=== PATIENT | female | born 1930 | race Caucasian/White ===

== ENCOUNTER 2016-08-31 18:21 | Inpatient (IN) | payer MEDICARE ==
[~2016-08-31 18:21] MED LIST: ALLO100 PO; CEPH250T PO; FERR324T4 PO; FISH1000 PO; HYDR-2823 PO; HYDR-3133 PO; KLOR8TAB PO; KONS520C PO; LORTA5 PO; LOVA1TAB47 PO; MAXZ PO; OCUVTAB PO; OXYB5TAB33 PO; PREM0.622 PO; REST30CA PO; TYLE500T PO; osteo biflex
[2016-08-31 18:34] VITALS: BP 166/81; PULSE 94; RESP 20; TEMP 99.1
--- NOTE | 2016-08-31 18:51 | PD ---
HPI Chief Complaint: Fall Time Seen by Provider: 18:50 Travel History International Travel<30 days: No Contact w/Intl Traveler<30days: No Traveled to known affect area: No History of Present Illness HPI 85-year-old female presents the emergency department via EMS status post fall from her toilet at home 2 days prior to this visit. Patient was unable to get up and spent the last 2 days on the floor patient was visited by her grandson this afternoon and found her and called the ambulance. Patient states she lost balance and fell, and then was unable to get up. She does complain of some left hip discomfort, but denies numbness, tingling, or weakness. Does have ecchymosis around the left eye although she does not complain of headache, neck pain, or visual changes. The patient's Main complaint is of extreme thirst. Patient denies thoracic pain or shortness of breath. Patient denies abdominal pain. She is alert and oriented 3. She is allergic to aspirin. PFSH Past Medical History Anemia: Yes Arthritis: Yes Blood Disorders: No Anxiety: Yes Depression: Yes Cancer: Yes (RIGHT LOWER EYELID) Cardiovascular Problems: Yes High Cholesterol: Yes Diabetes: No Diminished Hearing: No Endocrine: No Gastrointestinal Disorders: Yes Glaucoma: No Gout: Yes Genitourinary: No Headaches: Yes Hepatitis: No Hiatal Hernia: Yes (HX OF) Hypertension: Yes Immune Disorder: No Implanted Vascular Access Dvce: Yes Medical other: Yes (ASPIRIN CAUSES INTERNAL BLEEDING) Musculoskeletal: Yes Neurologic: No Psychiatric: No Reproductive: No Respiratory: No Thyroid Disease: No Menopausal: Yes : 2 Para: 2 Past Surgical History Abdominal Surgery: Yes (JONY 1994; REPAIR UMBILICAL HERNIA ) Body Medical Devices: FARRAH EYES LENS Cholecystectomy: Yes Ear Surgery: No Eye Surgery: Yes (FARRAH CATARACT SX RT 08' LEFT 2009) Genitourinary Surgery: No Gynecologic Surgery: No Joint Replacement: Yes (BILATERAL SHOULDERS) Oral Surgery: No Pacemaker: No Other Surgery: Yes (2001 REPAIR HIATAL HERNIA) Social History Alcohol Use: No Tobacco Use: No Substance Use: No Allergies-Medications (Allergen,Severity, Reaction): Coded Allergies: Aspirin (Verified Allergy, Severe, STOMACH BLEED, 03/02/14) Reported Meds & Prescriptions Reported Meds & Active Scripts Active Reported Cephalexin 250 Mg Tab 250 Mg PO BID Metamucil (Psyllium) 520 Mg Cap 520 Mg PO DAILY Ocuvite (Multiple Vitamins W/ Minerals) 1 Tab 1 Tab PO DAILY Triamterene-Hydrochlorothiazide 75-50 Mg Tab 1 Tab PO BID Osteo Bi-Flex One A Day (Acpvrvlem-Zobiklnedrw-Srszeue) 1 Tab 1 Tab PO DAILY Fish Oil 1000 mg (Rosebud-3 Fatty Acids) 1 Cap Cap 1,000 Mg PO DAILY Ferrous Sulfate 325 Mg Tab 325 Mg PO HS Temazepam 30 Mg Cap 30 Mg PO HS PRN Premarin (Estrogens Conjugated) 0.625 Mg Tab 0.625 Mg PO DAILY Ditropan (Oxybutynin Chloride) 5 Mg Tab 5 Mg PO BID Mirtazapine 30 Mg Tab 30 Mg PO HS Klor-Con 8 (Potassium Chloride) 8 Meq Tab 8 Meq PO DAILY Allopurinol 100 Mg Tab 100 Mg PO DAILY Review of Systems Except as stated in HPI: all other systems reviewed are Neg General / Constitutional: No: Fever Eyes: No: Visual changes HENT: No: Headaches Cardiovascular: No: Chest Pain or Discomfort Respiratory: No: Shortness of Breath Gastrointestinal: No: Abdominal Pain Genitourinary: No: Dysuria Musculoskeletal: No: Pain Skin: No Rash Neurologic: No: Weakness Psychiatric: No: Depression Endocrine: No: Polydipsia Hematologic/Lymphatic: No: Easy Bruising Physical Exam Narrative GENERAL: Patient appears in moderate distress. SKIN: Warm and dry. Normal color, however very poor turgor. Patient has ecchymosis around the left orbital region with mild swelling of the eyelids upper and lower. No obvious contusion to the scalp otherwise is noted. No open abrasions or wounds. No ecchymosis under the left buttock or hip is noted. HEAD: Atraumatic. Normocephalic. No specific point tenderness. EYES: Pupils equal and round. No scleral icterus. No injection or drainage. Ocular motions are equal bilaterally. No signs of ocular entrapment. ENT: No nasal bleeding or discharge. Mucous membranes pink and dry. No obvious dental fracture. Pharynx is clear. Airway is patent. NECK: Trachea midline. No JVD. No bony tenderness or step-off. Cervical range of motion is without pain. CARDIOVASCULAR: Regular rate and rhythm. No murmurs gallops or rubs appreciated. RESPIRATORY: No accessory muscle use. Clear to auscultation. Breath sounds equal bilaterally. No thoracic tenderness with palpation. GASTROINTESTINAL: Abdomen soft, non-tender, nondistended. Hepatic and splenic margins not palpable. MUSCULOSKELETAL: Extremities without clubbing, cyanosis, or edema. Patient may have some shortening of the left leg but is difficult to tell due to the patient 's habitus. Patient does complain of discomfort with motion of the left lower extremity in the hip. No obvious crepitus or deformity is noted. Pelvis seems to be intact with palpation. Lower extremities have normal neurovascular exam. NEUROLOGICAL: Awake and alert. No obvious cranial nerve deficits. Motor grossly within normal limits. Five out of 5 muscle strength in the arms and legs. Normal speech. PSYCHIATRIC: Appropriate mood and affect; insight and judgment normal. Data Data Last Documented VS Vital Signs Date Time Temp Pulse Resp B/P Pulse Ox O2 Delivery O2 Flow Rate FiO2 08/31/16 19:10 85 18 166/81 95 Room Air 08/31/16 18:34 99.1 Orders Electrocardiogram (08/31/16 18:54) Complete Blood Count With Diff (08/31/16 18:54) Comprehensive Metabolic Panel (08/31/16 18:54) Prothrombin Time / Inr (Pt) (08/31/16 18:54) Act Partial Throm Time (Ptt) (08/31/16 18:54) Urinalysis - C+S If Indicated (08/31/16 18:54) Chest, Single Ap (08/31/16 18:54) Hip, Uni(Ap&Lat) W Ap Pelvis (08/31/16 18:54) Iv Access Insert/Monitor (08/31/16 18:54) Urinary Catheter Insert/Apply (08/31/16 18:54) Oximetry (08/31/16 18:54) Ecg Monitoring (08/31/16 18:54) Ondansetron Inj (Zofran Inj) (08/31/16 19:00) Sodium Chloride 0.9% Flush (Ns Flush) (08/31/16 19:00) Ckmb (Isoenzyme) Profile (08/31/16 18:54) Troponin I (08/31/16 18:54) Blood Culture (08/31/16 18:54) Blood Glucose (08/31/16 18:54) Sodium Chlor 0.9% 1000 Ml Inj (Ns 1000 M (08/31/16 18:54) Sodium Chlor 0.9% 1000 Ml Inj (Ns 1000 M (08/31/16 18:54) Ct Brain W/O Iv Contrast(Rout) (08/31/16 18:54) Ct Cerv Spine W/O Contrast (08/31/16 18:54) Creatine Kinase (Cpk) (08/31/16 19:16) Ct Hip W/O Contrast (08/31/16 ) CKMB (08/31/16 19:17) CKMB% (08/31/16 19:17) Labs Laboratory Tests Test 08/31/16 19:17 White Blood Count 14.5 TH/MM3 Red Blood Count 4.65 MIL/MM3 Hemoglobin 14.3 GM/DL Hematocrit 43.9 % Mean Corpuscular Volume 94.5 FL Mean Corpuscular Hemoglobin 30.7 PG Mean Corpuscular Hemoglobin 32.5 % Concent Red Cell Distribution Width 14.1 % Platelet Count 249 TH/MM3 Mean Platelet Volume 9.3 FL Neutrophils (%) (Auto) 88.5 % Lymphocytes (%) (Auto) 5.0 % Monocytes (%) (Auto) 6.3 % Eosinophils (%) (Auto) 0.0 % Basophils (%) (Auto) 0.2 % Neutrophils # (Auto) 12.8 TH/MM3 Lymphocytes # (Auto) 0.7 TH/MM3 Monocytes # (Auto) 0.9 TH/MM3 Eosinophils # (Auto) 0.0 TH/MM3 Basophils # (Auto) 0.0 TH/MM3 CBC Comment DIFF FINAL Differential Comment Prothrombin Time 11.1 SEC Prothromb Time International 1.0 RATIO Ratio Activated Partial 23.8 SEC Thromboplast Time Sodium Level 143 MEQ/L Potassium Level 5.3 MEQ/L Chloride Level 107 MEQ/L Carbon Dioxide Level 26.7 MEQ/L Anion Gap 9 MEQ/L Blood Urea Nitrogen 49 MG/DL Creatinine 1.77 MG/DL Estimat Glomerular Filtration 27 ML/MIN Rate Random Glucose 119 MG/DL Calcium Level 11.7 MG/DL Protein Corrected Calcium 11.3 MG/DL Total Bilirubin 1.6 MG/DL Aspartate Amino Transf 174 U/L (AST/SGOT) Alanine Aminotransferase 69 U/L (ALT/SGPT) Alkaline Phosphatase 132 U/L Total Creatine Kinase 3757 U/L Troponin I 0.79 NG/ML Total Protein 7.8 GM/DL Albumin 3.7 GM/DL MDM Medical Decision Making Medical Screen Exam Complete: Yes Emergency Medical Condition: Yes Medical Record Reviewed: Yes Differential Diagnosis Syncopal episode. Possible fall with fracture. Prolonged time on floor without food or drink. Cardiac syndrome. Possible pelvic or hip fracture. Narrative Course Patient is medically stable at time of exam. Labs ordered including CBC, CMP, lactic acid, cardiac panel, magnesium, urinalysis. Aviles catheter is ordered. IV access is obtained patient is given 2 L of normal saline IV bolus. CT of the head is ordered as well as x-rays of the left hip and pelvis. Chest x-ray is ordered as well as EKG. CBC shows leukocytosis of 14.5. CMP significant for sodium 143, potassium 5.3. BUN of 49. Creatinine of 1.77. Calcium is 11.7. Protein corrected calcium is 11.3. Alkaline phosphatase is 132. Draining kinase is very elevated at 3757. Upon is elevated 0.79. Coagulation studies are normal. Chest x-ray shows moderate enlargement of the cardiac silhouette slightly due to cardiomyopathy, and retrocardiac density likely due to hiatal hernia. Per radiologist. C-spine CT shows no acute findings per radiologist. CT of the brain shows low attenuation in the left brain stem, left cerebellum and medial left temporal lobe. Acute infarction cannot be excluded. Cerebral atrophy and chronic ischemic small vessel vasculopathy is seen. No signs of fracture. Per radiologist. X-rays of the left hip shows a mallet left femoral neck suggestive osteophytes versus nondisplaced fracture. CT recommended. CT of the left hip shows degenerative changes without fracture. Per radiologist. Patient is discussed and evaluated with Dr. Jiménez, who feels the patient warrants admission to the ICU and sitting her multiple issues and critical condition. Dr. Jiménez spoke with Dr. De La Torre who agreed to admit the patient to the ICU. Diagnosis Primary Impression: Acute renal failure due to traumatic rhabdomyolysis Additional Impressions: Dehydration, severe Cardiomyopathy Qualified Code: I42.9 - Cardiomyopathy, unspecified type Ischemic stroke Admitting Information Admitting Physician Requests: Admit Condition: Stable Rogelio Alexander Aug 31, 2016 18:50
[2016-08-31] MEDS ORDERED: SODIUM CHLOR 0.9% 1000 ML INJ 800 ML IV ONE (18:54)
[2016-08-31] MEDS ORDERED: SODIUM CHLOR 0.9% 1000 ML INJ 1,000 ML IV ONE (18:54)
[2016-08-31] MEDS ORDERED: SODIUM CHLORIDE 0.9% FLUSH 10 ML FLUSH IVF PRN (19:00)
[2016-08-31] MEDS ORDERED: ONDANSETRON HCL 4 MG/2 ML VIAL IVP ONE (19:00)
[2016-08-31 19:10] VITALS: BP 166/81; PULSE 85; RESP 18; O2SAT 95
[2016-08-31] MEDS ORDERED: FERR325T PO (19:23)
[2016-08-31] MEDS ORDERED: TEMA30CA PO (19:23)
[2016-08-31] MEDS ORDERED: MIRT30TA PO (19:23)
[2016-08-31] MEDS ORDERED: TRIA1TAB5 PO (19:23)
[2016-08-31] MEDS ORDERED: FISH100020 PO (19:23)
[2016-08-31] MEDS ORDERED: ESTR.625 PO (19:23)
[2016-08-31] MEDS ORDERED: ALLO100T PO (19:23)
[2016-08-31] MEDS ORDERED: KLOR8TAB PO (19:23)
[2016-08-31] MEDS ORDERED: META0.52 PO (19:23)
[2016-08-31] MEDS ORDERED: BOSW5TAB PO (19:23)
[2016-08-31] MEDS ORDERED: OCUVTAB PO (19:23)
[2016-08-31] MEDS ORDERED: OXYB5TAB10 PO (19:23)
[2016-08-31] MEDS ORDERED: CEPH250T PO (19:24)
[2016-08-31 19:28] LABS: AUTOMATED NEUTROPHIL # 12.8 TH/MM3 (1.8-7.7); BASOPHIL % 0.2 % (0.0-2.0); HEMATOCRIT 43.9 % (35.0-46.0); HEMO FLAGS DIFF FINAL; LYMPHOCYTE # 0.7 TH/MM3 (1.0-4.8); MEAN CELL VOLUME 94.5 FL (80.0-100.0); MEAN CORPUSCULAR HEMOGLOBIN 30.7 PG (27.0-34.0); MEAN CORPUSCULAR HGB CONC 32.5 % (32.0-36.0); MONO % 6.3 % (0.0-8.0); NEUT % 88.5 % (16.0-70.0); PLATELET COUNT 249 TH/MM3 (150-450); RED BLOOD COUNT 4.65 MIL/MM3 (4.00-5.30); RED CELL DISTRIBUTION WIDTH 14.1 % (11.6-17.2); WHITE BLOOD COUNT 14.5 TH/MM3 (4.0-11.0)
--- NOTE | 2016-08-31 19:34 | RADRPT ---
EXAM DATE/TIME: 08/31/2016 19:16 [facility] COMPARISON: No previous studies available for comparison. INDICATIONS : Per family patient fell yesterday, left hip pain. MEDICAL HISTORY : None. SURGICAL HISTORY : None. ENCOUNTER: Initial ACUITY: 2 days PAIN SCORE: 8/10 LOCATION: Left Hip FINDINGS: Examination of the left hip was performed with AP Pelvis. The primary and secondary trabecular patte rn of the femoral neck is intact. Slight contour abnormality of the left femoral neck. Mild degenerat didier changes at each hip. CONCLUSION: Mild osteoarthritic left hip. Slight contour abnormality of the left femoral neck could be a ridge of osteophytes versus nondisplaced fracture. CT of the left hip without contrast may be warranted. Navarro Randolph MD on August 31, 2016 at 19:29 Board Certified Radiologist. This report was verified electronically.
[2016-08-31 19:41] LABS: APTT (PATIENT) 23.8 SEC (24.3-30.1); PROTHROMBIN TIME - PATIENT 11.1 SEC (9.8-11.6)
--- NOTE | 2016-08-31 19:42 | RADRPT ---
EXAM DATE/TIME: 08/31/2016 19:20 [facility] COMPARISON: CHEST PA & LAT, October 11, 2009, 11:11. INDICATIONS : Per family patient fell, chest pains. MEDICAL HISTORY : None. SURGICAL HISTORY : None. ENCOUNTER: Initial ACUITY: 2 days PAIN SCORE: 0/10 LOCATION: Bilateral chest FINDINGS: A single view of the chest demonstrates large retrocardiac density. Right lung is clear. The cardiom ediastinal contours are unremarkable. Moderate enlargement of cardiac silhouette. Calcifications over lying the upper mid heart. Scoliosis. Bilateral shoulder prostheses.. CONCLUSION: 1. Moderate enlargement of the cardiac silhouette likely cardiomyopathy. 2. Retrocardiac density likely hiatal hernia. Navarro Randolph MD on August 31, 2016 at 19:38 Board Certified Radiologist. This report was verified electronically.
--- NOTE | 2016-08-31 19:55 | RADRPT ---
EXAM DATE/TIME: 08/31/2016 19:26 [facility] COMPARISON: CT BRAIN W/O CONTRAST, March 02, 2014, 16:54. INDICATIONS : Trauma; fall. Altered mental status. RADIATION DOSE: 56.35 CTDIvol (mGy) MEDICAL HISTORY : Hypertension. cancer on eyelid SURGICAL HISTORY : None. ENCOUNTER: Initial ACUITY: 1 day PAIN SCALE: Non-responsive LOCATION: cranial TECHNIQUE: Multiple contiguous axial images were obtained of the head. Using automated exposure control and adj ustment of the mA and/or kV according to patient size, radiation dose was kept as low as reasonably a chievable to obtain optimal diagnostic quality images. FINDINGS: CEREBRUM: The ventricles are normal for age. There is cerebral atrophy. Scattered areas of low-attenuation are seen throughout the white matter No evidence of midline shift, mass lesion, or hemorrhage. No extra- axial fluid collections are seen. POSTERIOR FOSSA: There is low attenuation of the left brain stem and portions of the left cerebellum and medial left t emporal lobe.. The 4th ventricle is midline. The cerebellopontine angle is unremarkable. EXTRACRANIAL: The visualized portion of the orbits is intact. SKULL: The calvaria is intact. No evidence of skull fracture. CONCLUSION: 1. Low attenuation in the left brain stem, left cerebellum and medial left temporal lobe. Acute infar ction cannot be excluded. 2. Cerebral atrophy and chronic ischemic small vessel vasculopathy. Navarro Randolph MD on August 31, 2016 at 19:52 Board Certified Radiologist. This report was verified electronically.
--- NOTE | 2016-08-31 20:00 | RADRPT ---
EXAM DATE/TIME: 08/31/2016 19:35 [facility] COMPARISON: HIP LEFT (AP&LAT 2/3VWS) W AP PELVIS, August 31, 2016, 19:16. INDICATIONS : Trauma; fall. RADIATION DOSE: 37.84 CTDIvol (mGy) MEDICAL HISTORY : Hypertension. cancer on eyelid SURGICAL HISTORY : None. ENCOUNTER: Initial ACUITY: 1 day PAIN SCALE: Non-responsive LOCATION: Left hip TECHNIQUE: Volumetric scanning of the hip was performed. Using automated exposure control and adjustment of the mA and/or kV according to patient size, radiation dose was kept as low as reasonably achievable to o btain optimal diagnostic quality images. FINDINGS: No evidence of fracture. Mild degenerative changes of each hip. No femoral neck fracture. Urinary jens dder is mildly distended. Copious amount of stool in the rectum. Degenerative changes of the lower primitivo mbar spine. Alignment is within normal limits. CONCLUSION: Mild degenerative changes of each hip. No fracture along the left hip. Navarro Randolph MD on August 31, 2016 at 19:57 Board Certified Radiologist. This report was verified electronically.
--- NOTE | 2016-08-31 20:02 | RADRPT ---
EXAM DATE/TIME: 08/31/2016 19:28 [facility] COMPARISON: No previous studies available for comparison. INDICATIONS : Trauma; fall. RADIATION DOSE: 35.7 CTDIvol (mGy) MEDICAL HISTORY : Hypertension. cancer on eyelid SURGICAL HISTORY : None. ENCOUNTER: Initial ACUITY: 1 day PAIN SCALE: Non-responsive LOCATION: neck TECHNIQUE: Volumetric scanning of the cervical spine was performed. Multiplanar reconstructions in the sagittal, coronal and oblique axial planes were performed. Using automated exposure control and adjustment o f the mA and/or kV according to patient size, radiation dose was kept as low as reasonably achievable to obtain optimal diagnostic quality images. FINDINGS: VERTEBRAE: Advanced multilevel degenerative changes. Scoliosis is seen. No compression fracture. No definite can al stenosis. Multilevel posterior disc osteophyte complexes. ALIGNMENT: Minimal anterolisthesis C3 on C4 and to a lesser degree C4 and C5. There is motion artifact. CONCLUSION: 1. Scoliosis and multilevel degenerative changes. 2. Minimal anterolisthesis C3 on C4 and C4 on C5. Navarro Randolph MD on August 31, 2016 at 19:59 Board Certified Radiologist. This report was verified electronically.
[2016-08-31 20:18] LABS: BICARBONATE 26.7 MEQ/L (21.0-32.0); CALCIUM-PROTEIN CORRECTED 11.3 MG/DL (8.5-10.1); POTASSIUM 5.3 MEQ/L (3.5-5.1); TOTAL BILIRUBIN ADULT 1.6 MG/DL (0.2-1.0)
[2016-08-31 20:33] LABS: CKMB 65.9 NG/ML (0.5-3.6)
--- NOTE | 2016-08-31 20:34 | PD ---
Physical Exam Date Seen by Provider: Aug 31, 2016 Time Seen by Provider: 20:30 Narrative The patient is a 85-year-old female was initially evaluated by the mid -level provider, Rogelio Alexander PA-C. Please refer to the initial history, physical, diagnostic evaluation, treatment modality plan. Data Data Last Documented VS Vital Signs Date Time Temp Pulse Resp B/P Pulse Ox O2 Delivery O2 Flow Rate FiO2 08/31/16 19:10 85 18 166/81 95 Room Air 08/31/16 18:34 99.1 Orders Electrocardiogram (08/31/16 18:54) Complete Blood Count With Diff (08/31/16 18:54) Comprehensive Metabolic Panel (08/31/16 18:54) Prothrombin Time / Inr (Pt) (08/31/16 18:54) Act Partial Throm Time (Ptt) (08/31/16 18:54) Urinalysis - C+S If Indicated (08/31/16 18:54) Chest, Single Ap (08/31/16 18:54) Hip, Uni(Ap&Lat) W Ap Pelvis (08/31/16 18:54) Iv Access Insert/Monitor (08/31/16 18:54) Urinary Catheter Insert/Apply (08/31/16 18:54) Oximetry (08/31/16 18:54) Ecg Monitoring (08/31/16 18:54) Ondansetron Inj (Zofran Inj) (08/31/16 19:00) Sodium Chloride 0.9% Flush (Ns Flush) (08/31/16 19:00) Ckmb (Isoenzyme) Profile (08/31/16 18:54) Troponin I (08/31/16 18:54) Blood Culture (08/31/16 18:54) Blood Glucose (08/31/16 18:54) Sodium Chlor 0.9% 1000 Ml Inj (Ns 1000 M (08/31/16 18:54) Sodium Chlor 0.9% 1000 Ml Inj (Ns 1000 M (08/31/16 18:54) Ct Brain W/O Iv Contrast(Rout) (08/31/16 18:54) Ct Cerv Spine W/O Contrast (08/31/16 18:54) Creatine Kinase (Cpk) (08/31/16 19:16) Ct Hip W/O Contrast (08/31/16 ) CKMB (08/31/16 19:17) CKMB% (08/31/16 19:17) Labs Laboratory Tests Test 08/31/16 19:17 White Blood Count 14.5 TH/MM3 Red Blood Count 4.65 MIL/MM3 Hemoglobin 14.3 GM/DL Hematocrit 43.9 % Mean Corpuscular Volume 94.5 FL Mean Corpuscular Hemoglobin 30.7 PG Mean Corpuscular Hemoglobin 32.5 % Concent Red Cell Distribution Width 14.1 % Platelet Count 249 TH/MM3 Mean Platelet Volume 9.3 FL Neutrophils (%) (Auto) 88.5 % Lymphocytes (%) (Auto) 5.0 % Monocytes (%) (Auto) 6.3 % Eosinophils (%) (Auto) 0.0 % Basophils (%) (Auto) 0.2 % Neutrophils # (Auto) 12.8 TH/MM3 Lymphocytes # (Auto) 0.7 TH/MM3 Monocytes # (Auto) 0.9 TH/MM3 Eosinophils # (Auto) 0.0 TH/MM3 Basophils # (Auto) 0.0 TH/MM3 CBC Comment DIFF FINAL Differential Comment Prothrombin Time 11.1 SEC Prothromb Time International 1.0 RATIO Ratio Activated Partial 23.8 SEC Thromboplast Time Sodium Level 143 MEQ/L Potassium Level 5.3 MEQ/L Chloride Level 107 MEQ/L Carbon Dioxide Level 26.7 MEQ/L Anion Gap 9 MEQ/L Blood Urea Nitrogen 49 MG/DL Creatinine 1.77 MG/DL Estimat Glomerular Filtration 27 ML/MIN Rate Random Glucose 119 MG/DL Calcium Level 11.7 MG/DL Protein Corrected Calcium 11.3 MG/DL Total Bilirubin 1.6 MG/DL Aspartate Amino Transf 174 U/L (AST/SGOT) Alanine Aminotransferase 69 U/L (ALT/SGPT) Alkaline Phosphatase 132 U/L Total Creatine Kinase 3757 U/L Troponin I 0.79 NG/ML Total Protein 7.8 GM/DL Albumin 3.7 GM/DL [facility] Medical Record Reviewed: Yes Supervised Visit with PARAMJIT: Yes Interpretation(s) EKG reveals supraventricular rhythm with a rate in 93. Q wave noted in lead V1 and V2. Unifocal PVC. Laboratory Tests Test 08/31/16 19:17 White Blood Count 14.5 TH/MM3 Red Blood Count 4.65 MIL/MM3 Hemoglobin 14.3 GM/DL Hematocrit 43.9 % Mean Corpuscular Volume 94.5 FL Mean Corpuscular Hemoglobin 30.7 PG Mean Corpuscular Hemoglobin 32.5 % Concent Red Cell Distribution Width 14.1 % Platelet Count 249 TH/MM3 Mean Platelet Volume 9.3 FL Neutrophils (%) (Auto) 88.5 % Lymphocytes (%) (Auto) 5.0 % Monocytes (%) (Auto) 6.3 % Eosinophils (%) (Auto) 0.0 % Basophils (%) (Auto) 0.2 % Neutrophils # (Auto) 12.8 TH/MM3 Lymphocytes # (Auto) 0.7 TH/MM3 Monocytes # (Auto) 0.9 TH/MM3 Eosinophils # (Auto) 0.0 TH/MM3 Basophils # (Auto) 0.0 TH/MM3 CBC Comment DIFF FINAL Differential Comment Prothrombin Time 11.1 SEC Prothromb Time International 1.0 RATIO Ratio Activated Partial 23.8 SEC Thromboplast Time Sodium Level 143 MEQ/L Potassium Level 5.3 MEQ/L Chloride Level 107 MEQ/L Carbon Dioxide Level 26.7 MEQ/L Anion Gap 9 MEQ/L Blood Urea Nitrogen 49 MG/DL Creatinine 1.77 MG/DL Estimat Glomerular Filtration 27 ML/MIN Rate Random Glucose 119 MG/DL Calcium Level 11.7 MG/DL Protein Corrected Calcium 11.3 MG/DL Total Bilirubin 1.6 MG/DL Aspartate Amino Transf 174 U/L (AST/SGOT) Alanine Aminotransferase 69 U/L (ALT/SGPT) Alkaline Phosphatase 132 U/L Total Creatine Kinase 3757 U/L Troponin I 0.79 NG/ML Total Protein 7.8 GM/DL Albumin 3.7 GM/DL Last Impressions Hip and Pelvis X-Ray [id number]/31/[id number] Signed Impressions: Service Date/Time: Wednesday, August 31, 2016 19:16 - CONCLUSION: Mild osteoarthritic left hip. Slight contour abnormality of the left femoral neck could be a ridge of osteophytes versus nondisplaced fracture. CT of the left hip without contrast may be warranted. Navarro Randolph MD Head CT [id number]/31/[id number] Signed Impressions: Service Date/Time: Wednesday, August 31, 2016 19:26 - CONCLUSION: 1. Low attenuation in the left brain stem, left cerebellum and medial left temporal lobe. Acute infarction cannot be excluded. 2. Cerebral atrophy and chronic ischemic small vessel vasculopathy. Navarro Randolph MD Chest X-Ray 08/31/16 1854 Signed Impressions: Service Date/Time: Wednesday, August 31, 2016 19:20 - CONCLUSION: 1. Moderate enlargement of the cardiac silhouette likely cardiomyopathy. 2. Retrocardiac density likely hiatal hernia. Navarro Randolph MD Cervical Spine CT 08/31/16 1854 Signed Impressions: Service Date/Time: Wednesday, August 31, 2016 19:28 - CONCLUSION: 1. Scoliosis and multilevel degenerative changes. 2. Minimal anterolisthesis C3 on C4 and C4 on C5. Navarro Randolph MD Lower Extremity CT 08/31/16 0000 Signed Impressions: Service Date/Time: Wednesday, August 31, 2016 19:35 - CONCLUSION: Mild degenerative changes of each hip. No fracture along the left hip. Navarro Randolph MD Differential Diagnosis Differential diagnosis includes mechanical fall, syncope, CVA, rhabdomyolysis, acute renal failure, dehydration, electrolyte abnormality, hip fracture, hip contusion, intracranial hemorrhage. Narrative Course I, Dr. Jiménez, have reviewed the advance practice practitioner's documentation and am in agreement, met with the patient face to face, made the diagnosis, and the medical decision making was done by me. *My assessment and Findings: A 5-year-old female who was initially evaluated by the mid-level provider. Please refer to the initial history, physical, diagnostic evaluation, treatment modality. Patient currently fell yesterday, landed on her left side and was unable to ambulate. Patient has been laying on her left side, complains of edema to left arm, left leg, left hip pain. Patient was also noted to have ecchymosis in the left periorbital region. CT the brain did reveal low attenuation multiple areas of the brain, cannot exclude acute CVA. The patient was awake, with follows some simple commands, but was hard to delineate a true neurologic exam in regards to NIHSS. The patient's creatinine was elevated 1.77, CPK was greater than 3700, troponin was or 0.79, consistent with rhabdomyolysis and troponin leak. Chest x -ray reveals a large cardiac silhouette, may be dilated cardiomyopathy versus pericardial effusion. The patient was in ministered 2 L of IV fluids. Patient' s neurologic status revealed a GCS of 13, she would not open her eyes, she was verbal, but getting her to move her extremities was difficult. As patient does appear to have had a mechanical fall with possible CVA or secondary to CVA with secondary rhabdomyolysis and enlarged cardiac silhouette on chest x-ray which may be dilated cardiomyopathy, the patient will be placed in the ICU to evaluate for decreasing mental status, volume overload, or progressing symptoms. I discussed the patient with Dr. De La Torre who agrees with admission. Physician Communication Physician Communication I discussed the patient with the on-call handle and vent machine operator, Dr. De La Torre, who agrees with admission. Diagnosis Primary Impression: Acute renal failure due to traumatic rhabdomyolysis Additional Impressions: Acute kidney injury Elevated troponin Admitting Information Admitting Physician Requests: Admit Tres Jiménez MD Aug 31, 2016 20:34
[2016-08-31] MEDS ORDERED: CLOPIDOGREL 75 MG TAB PO ONE (20:45)
[2016-08-31 21:05] VITALS: BP 162/98; PULSE 95; RESP 18; O2SAT 95
[2016-08-31 21:45] LABS: BLOOD, URINE MOD (NEG); GLUCOSE,URINE NEG (NEG); KETONE, URINE NEG (NEG); NITRITE,URINE NEG (NEG); URINE COLOR YELLOW (YELLW/STRAW)
[2016-08-31 21:48] LABS: COMMENT (UR) CATH-CULT NOT IND; CULTURE IF INDICATED CATH CULTURE NOT IND
--- NOTE | 2016-08-31 21:59 | HHI.HP ---
HPI Service Critical Care Medicine Primary Care Physician Cirilo Og MD Admission Diagnosis rhabdomyolysis, acute kidney injury, elevated troponin, possible CVA Diagnosis: Travel History International Travel<30 Days: No Contact w/Intl Traveler <30 Da: No Traveled to Known Affected Are: No History of Present Illness 85-year-old female presents the emergency department via EMS status post fall from her toilet at home 2 days prior to this visit. Patient was unable to get up and spent the last 2 days on the floor. Her grandson found her this afternoon and called the ambulance. Patient lost balance and fell, and then was unable to get up. She does complain of some left hip discomfort, however her CT was negative for any fractures. The patient's Main complaint is of extreme thirst. Patient denies thoracic pain or shortness of breath. Patient denies abdominal pain. She is alert and oriented 3. She is allergic to aspirin. 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 Review of Systems Constitutional: COMPLAINS OF: Fatigue, Change in appetite, DENIES: Diaphoretic episodes, Fever, Weight gain, Weight loss, Chills, Dizziness, Night Sweats Endocrine: DENIES: Abnorml menstrual pattern, Heat/cold intolerance, Polydipsia , Polyuria, Polyphagia Eyes: DENIES: Blurred vision, Diplopia, Eye inflammation, Eye pain, Vision loss , Photosensitivity, Double Vision Ears, nose, mouth, throat: DENIES: Tinnitus, Hearing loss, Vertigo, Nasal discharge, Oral lesions, Throat pain, Hoarseness, Ear Pain, Running Nose, Epistaxis, Sinus Pain, Toothache, Odynophagia Respiratory: DENIES: Apneas, Cough, Snoring, Wheezing, Hemoptysis, Sputum production, Shortness of breath Cardiovascular: DENIES: Chest pain, Palpitations, Syncope, Dyspnea on Exertion , PND, Lower Extremity Edema, Orthopnea, Claudication Gastrointestinal: DENIES: Abdominal pain, Black stools, Bloody stools, Constipation, Diarrhea, Nausea, Vomiting, Difficulty Swallowing, Anorexia Genitourinary: DENIES: Abnormal vaginal bleeding, Dysmenorrhea, Dyspareunia, Sexual dysfunction, Urinary frequency, Urinary incontinence, Urgency, Hematuria , Dysuria, Nocturia, Vaginal discharge Musculoskeletal: DENIES: Joint pain, Muscle aches, Stiffness, Joint Swelling, Back pain, Neck pain Integumentary: DENIES: Abnormal pigmentation, Pruritus, Rash, Nail changes, Breast masses, Breast skin changes, Nipple discharge Hematologic/lymphatic: DENIES: Bruising, Lymphadenopathy Immunologic/allergic: DENIES: Eczema, Urticaria Neurologic: COMPLAINS OF: Abnormal gait, DENIES: Headache, Localized weakness , Paresthesias, Seizures, Speech Problems, Tremor, Poor Balance Psychiatric: DENIES: Anxiety, Confusion, Mood changes, Depression, Hallucinations, Agitation, Suicidal Ideation, Homicidal Ideation, Delusions Past Family Social History Allergies: Coded Allergies: Aspirin (Verified Allergy, Severe, STOMACH BLEED, 03/02/14) Past Medical History Hypertension Dyslipidemia Past Surgical History Cholecystectomy 1994 Umbilical hernia 1995 Hiatal hernia 2001 Cancer of eyelids 2002 Rotator cuff surgery 2006 Cataracts July 2007 Shoulder arthroplasty 2007 Reported Medications Reported Meds & Active Scripts Active Reported Cephalexin 250 Mg Tab 250 Mg PO BID Metamucil (Psyllium) 520 Mg Cap 520 Mg PO DAILY Ocuvite (Multiple Vitamins W/ Minerals) 1 Tab 1 Tab PO DAILY Triamterene-Hydrochlorothiazide 75-50 Mg Tab 1 Tab PO BID Osteo Bi-Flex One A Day (Ymksnkgva-Kvtkdgtryfn-Mhkbtma) 1 Tab 1 Tab PO DAILY Fish Oil 1000 mg ([place]-3 Fatty Acids) 1 Cap Cap 1,000 Mg PO DAILY Ferrous Sulfate 325 Mg Tab 325 Mg PO HS Temazepam 30 Mg Cap 30 Mg PO HS PRN Premarin (Estrogens Conjugated) 0.625 Mg Tab 0.625 Mg PO DAILY Ditropan (Oxybutynin Chloride) 5 Mg Tab 5 Mg PO BID Mirtazapine 30 Mg Tab 30 Mg PO HS Klor-Con 8 (Potassium Chloride) 8 Meq Tab 8 Meq PO DAILY Allopurinol 100 Mg Tab 100 Mg PO DAILY Active Ordered Medications Current Medications Medications (Trade) Dose Ordered Sig/Kuldeep Route PRN Reason Start Time Stop Time Status Last Admin Dose Admin Sodium Chloride (NS Flush) 2 ml UNSCH PRN .XX FLUSH AFTER USING IV ACCESS 08/31/16 22:00 Sodium Chloride (NS Flush) 2 ml BID .XX 09/01/16 09:00 Acetaminophen (Tylenol) 650 mg Q6H PRN PO PAIN 1-10 AND/OR FEVER >101F 08/31/16 22:00 Famotidine (Pepcid Inj) 20 mg Q12HR IV PUSH 09/01/16 09:00 Ondansetron HCl (Zofran Inj) 4 mg Q6H PRN IV NAUSEA OR VOMITING 08/31/16 22:00 Metoclopramide HCl (Reglan Inj) 5 mg Q6H PRN IV NAUSEA OR VOMITING 08/31/16 22:00 Zolpidem Tartrate (Ambien) 5 mg HS PRN PO INSOMNIA 08/31/16 22:00 Heparin Sodium (Porcine) (Heparin Inj) 5,000 units Q12H SQ 08/31/16 22:00 Miscellaneous Information 1 Q361D XX 08/31/16 22:00 Chlorhexidine Gluconate (Chlorhexidine 2% Cloth) 3 pack Taper DAILY@04 TOP 09/01/16 04:00 08/28/17 03:59 Chlorhexidine Gluconate 3 pack 3 pack UNSCH PRN TOP HYGIENIC CARE 08/31/16 22:00 Sodium Bicarbonate/ Sodium Chloride (Sodium Bicarbonate 8.4% Inj/1/2 NS 1000 ml Inj) 1,100 ml @ 42 mls/hr Q24H IV 08/31/16 23:00 Cephalexin Monohydrate (Keflex) 250 mg BID PO 09/01/16 09:00 UNV Estrogens Conjugated (Premarin) 0.625 mg DAILY PO 09/01/16 09:00 UNV Ferrous Sulfate (Ferrous Sulfate) 325 mg HS PO 09/01/16 21:00 UNV Mirtazapine (Remeron) 30 mg HS PO 09/01/16 21:00 UNV Vit C/Vit E/Zinc/ Copper/Lutein (Ocuvite) 1 tab DAILY PO 09/01/16 09:00 UNV Oxybutynin Chloride (Ditropan) 5 mg BID PO 09/01/16 09:00 UNV Temazepam (Restoril) 30 mg HS PRN PO INSOMNIA 08/31/16 22:45 UNV Non-Formulary Medication 520 mg DAILY PO 09/01/16 09:00 UNV Family History Noncontributory Social History Negative 3 Physical Exam Vital Signs Vital Signs Date Time Temp Pulse Resp B/P Pulse Ox O2 Delivery O2 Flow Rate FiO2 08/31/16 21:05 95 18 162/98 95 Room Air 08/31/16 19:10 85 18 166/81 95 Room Air 08/31/16 18:34 99.1 94 20 166/81 Physical Exam GENERAL: Well-nourished, well-developed patient. SKIN: Warm and dry. HEAD: Normocephalic. EYES: Left eye ecchymosis NECK: Supple, trachea midline. No JVD or lymphadenopathy. CARDIOVASCULAR: Regular rate and rhythm without murmurs, gallops, or rubs. RESPIRATORY: Breath sounds equal bilaterally. No accessory muscle use. GASTROINTESTINAL: Abdomen soft, non-tender, nondistended. MUSCULOSKELETAL: No cyanosis, or edema. BACK: Nontender without obvious deformity. No CVA tenderness. EXTREMITIES: No clubbing cyanosis or edema Laboratory Laboratory Tests Test 08/31/16 08/31/16 19:17 21:15 White Blood Count 14.5 Red Blood Count 4.65 Hemoglobin 14.3 Hematocrit 43.9 Mean Corpuscular Volume 94.5 Mean Corpuscular Hemoglobin 30.7 Mean Corpuscular Hemoglobin 32.5 Concent Red Cell Distribution Width 14.1 Platelet Count 249 Mean Platelet Volume 9.3 Neutrophils (%) (Auto) 88.5 Lymphocytes (%) (Auto) 5.0 Monocytes (%) (Auto) 6.3 Eosinophils (%) (Auto) 0.0 Basophils (%) (Auto) 0.2 Neutrophils # (Auto) 12.8 Lymphocytes # (Auto) 0.7 Monocytes # (Auto) 0.9 Eosinophils # (Auto) 0.0 Basophils # (Auto) 0.0 CBC Comment DIFF FINAL Differential Comment Prothrombin Time 11.1 Prothromb Time International 1.0 Ratio Activated Partial 23.8 Thromboplast Time Sodium Level 143 Potassium Level 5.3 Chloride Level 107 Carbon Dioxide Level 26.7 Anion Gap 9 Blood Urea Nitrogen 49 Creatinine 1.77 Estimat Glomerular Filtration 27 Rate Random Glucose 119 Calcium Level 11.7 Protein Corrected Calcium 11.3 Total Bilirubin 1.6 Aspartate Amino Transf 174 (AST/SGOT) Alanine Aminotransferase 69 (ALT/SGPT) Alkaline Phosphatase 132 Total Creatine Kinase 3757 Creatine Kinase MB 65.9 Creatine Kinase MB % 1.8 Troponin I 0.79 Total Protein 7.8 Albumin 3.7 Urine Color YELLOW Urine Turbidity CLEAR Urine pH 5.0 Urine Specific [place] 1.018 Urine Protein 30 Urine Glucose (UA) NEG Urine Ketones NEG Urine Occult Blood MOD Urine Nitrite NEG Urine Bilirubin NEG Urine Urobilinogen LESS THAN 2.0 Urine Leukocyte Esterase NEG Urine RBC 1 Urine Amorphous Sediment MOD Microscopic Urinalysis Comment CATH-CULT NOT IND Date/Time Procedure Status Source Growth 08/31/16 19:17 Aerobic Blood Culture Received Blood Peripheral Pending 08/31/16 19:17 Anaerobic Blood Culture Received Blood Peripheral Pending Result Diagram: 08/31/16191608/31/161916 Imaging Last 24 hours Impressions Hip and Pelvis X-Ray 08/31/161853 Signed Impressions: Service Date/Time: Wednesday, August 31, 2016 19:16 - CONCLUSION: Mild osteoarthritic left hip. Slight contour abnormality of the left femoral neck could be a ridge of osteophytes versus nondisplaced fracture. CT of the left hip without contrast may be warranted. Navarro Randolph MD Head CT 08/31/161853 Signed Impressions: Service Date/Time: Wednesday, August 31, 2016 19:26 - CONCLUSION: 1. Low attenuation in the left brain stem, left cerebellum and medial left temporal lobe. Acute infarction cannot be excluded. 2. Cerebral atrophy and chronic ischemic small vessel vasculopathy. Navarro Randolph MD Chest X-Ray 08/31/161853 Signed Impressions: Service Date/Time: Wednesday, August 31, 2016 19:20 - CONCLUSION: 1. Moderate enlargement of the cardiac silhouette likely cardiomyopathy. 2. Retrocardiac density likely hiatal hernia. Navarro Randolph MD Cervical Spine CT 08/31/161853 Signed Impressions: Service Date/Time: Wednesday, August 31, 2016 19:28 - CONCLUSION: 1. Scoliosis and multilevel degenerative changes. 2. Minimal anterolisthesis C3 on C4 and C4 on C5. Navarro Randolph MD Lower Extremity CT 08/31/16 0000 Signed Impressions: Service Date/Time: Wednesday, August 31, 2016 19:35 - CONCLUSION: Mild degenerative changes of each hip. No fracture along the left hip. Navarro Randolph MD Assessment and Plan Assessment and Plan Rhabdomyolysis - Status post fall and immobility - IV fluid hydration - Sodium bicarbonate drip for urine alkalinization - Monitor CPK trend Cardiomyopathy - Echocardiogram - Further management per results Abnormal CT of the brainstem - MRI of brain pending Iron deficiency anemia - Vasile sulfate DVT GI prophylaxis - Teds SCDs subcutaneous heparin - Pepcid Critical Care: The total critical care time was 35 minutes. Time to perform other separately billable procedures was not included in the critical care time. Papito De La Torre MD Aug 31, 2016 21:59
[2016-08-31] MEDS ORDERED: ONDANSETRON HCL 4 MG/2 ML VIAL IV PRN (22:00)
[2016-08-31] MEDS ORDERED: METOCLOPRAMIDE HCL 10 MG/2 ML VIAL IV PRN (22:00)
[2016-08-31] MEDS ORDERED: RESP: ALBUTEROL 2.5 MG/IPRATROPIUM 0.5 MG NEB (PRN) INH (22:00)
[2016-08-31] MEDS ORDERED: CHLORHEXIDINE GLUCONATE 2 % 1 PACK (2 CLOTHS) TOP PRN (22:00)
[2016-08-31] MEDS ORDERED: SODIUM CHLORIDE 0.9% FLUSH 10 ML FLUSH PRN (22:00)
[2016-08-31] MEDS ORDERED: ZOLPIDEM TARTRATE 5 MG TAB PO PRN (22:00)
[2016-08-31] MEDS ORDERED: ACETAMINOPHEN 325 MG TAB PO PRN (22:00)
[2016-08-31] MEDS ORDERED: MISCELLANEOUS NURSING INFORMATION XX SCH (22:00)
[2016-08-31 22:07] VITALS: BP 128/61; PULSE 74; RESP 18; O2SAT 93
[2016-08-31] MEDS ORDERED: SODIUM BICARBONATE 8.4% INJ 100 MEQ in SODIUM CHLOR 0.45% 1000 ML INJ 1,000 ML IV SCH (23:00)
[2016-08-31 23:01] VITALS: BP 135/63; PULSE 76; RESP 18; O2SAT 98
[2016-09-01] VITALS (15 sets, daily range): BP systolic 106–154; BP diastolic 56–91; PULSE 69–112; RESP 18–21; TEMP 97.8–98.6; O2SAT 93–100
[2016-09-01] MEDS: HEPARIN SODIUM - SQ 10,000 UNITS/ML VIAL SQ SCH ×3 (00:12→21:36)
[2016-09-01 03:35] LABS: CKMB 58.7 NG/ML (0.5-3.6)
[2016-09-01] MEDS: CHLORHEXIDINE GLUCONATE 2 % 1 PACK (2 CLOTHS) TOP SCH (04:00)
[2016-09-01 04:11] LABS: HEMATOCRIT 39.3 % (35.0-46.0); REVIEW FLAG FINAL
[2016-09-01] MEDS: PANTOPRAZOLE SODIUM 40 MG VIAL IV PUSH SCH ×2 (04:19→18:28)
[2016-09-01 04:41] LABS: AUTOMATED NEUTROPHIL # 11.9 TH/MM3 (1.8-7.7); BASOPHIL % 0.3 % (0.0-2.0); HEMATOCRIT 39.7 % (35.0-46.0); HEMO FLAGS DIFF FINAL; LYMPH % 10.4 % (9.0-44.0); LYMPHOCYTE # 1.5 TH/MM3 (1.0-4.8); MEAN CELL VOLUME 94.4 FL (80.0-100.0); MEAN CORPUSCULAR HEMOGLOBIN 30.8 PG (27.0-34.0); MEAN CORPUSCULAR HGB CONC 32.6 % (32.0-36.0); MONO % 9.5 % (0.0-8.0); NEUT % 79.8 % (16.0-70.0); PLATELET COUNT 232 TH/MM3 (150-450); RED CELL DISTRIBUTION WIDTH 14.3 % (11.6-17.2); WHITE BLOOD COUNT 14.9 TH/MM3 (4.0-11.0)
[2016-09-01 05:16] LABS: ALKALINE PHOSPHATASE 122 U/L (45-117); ALT (GPT) 74 U/L (10-53); ANION GAP 8 MEQ/L (5-15); AST (GOT) 233 U/L (15-37); BLOOD UREA NITROGEN 48 MG/DL (7-18); CHLORIDE 111 MEQ/L (98-107); GLOMERULAR FILTRATION RATE 30 ML/MIN (>89); SODIUM (NA) 145 MEQ/L (136-145); TOTAL BILIRUBIN ADULT 1.5 MG/DL (0.2-1.0)
[2016-09-01 05:25] LABS: POTASSIUM 5.3 MEQ/L (3.5-5.1)
[2016-09-01] MEDS: SODIUM CHLORIDE 0.9% FLUSH 10 ML FLUSH SCH ×2 (07:48→21:36)
[2016-09-01] MEDS ORDERED: FAMOTIDINE 20 MG/2 ML VIAL IV PUSH SCH (09:00)
[2016-09-01] MEDS ORDERED: CEPHALEXIN MONOHYDRATE 250 MG CAP PO SCH (09:00)
--- NOTE | 2016-09-01 09:04 | PD.CONS ---
HPI History of Present Illness This is a 85 year old female who presented to the ER after being found on her bathroom floor. She is currently extremely lethargic and unable to provide any history and therefore the history has been obtained from the EMR and nursing staff. According to the EMR, she fell from her toilet 2 days prior to this visit and was unable to get up. Her grandson found her and called EMS for assistance. In the ER, she was found to have rhabdomyolysis with acute kidney injury and electrolyte abnormalities, elevated troponin's that have been rising , and abnormal CT Scan of the head (08/31/16) which revealed 1. Low attenuation in the left brain stem, left cerebellum and medial left temporal lobe. Acute infarction cannot be excluded. 2. Cerebral atrophy and chronic ischemic small vessel vasculopathy. GI has been consulted for melena. The nurse reports that she was told by the dictating machine transcriber nurse that she had one black stool. She has not had any further episodes and has not had any nausea or vomiting. The patient denies any hx of peptic ulcer disease, nausea, vomiting, or abdominal pain. However, she is very lethargic and not able to provide any history. Right now, there is a smear of dark colored stool. MRI of the brain is pending and Cardiology has been consulted for her elevated troponins. She denies ever having an egd/colonoscopy done, although again, she is a poor historian. ( Rosa Ng) PFSH Past Medical History HTN Dyslipidemia Past Surgical History Cholecystectomy Umbilical hernia Hiatal hernia (Rosa Ng) Coded Allergies: Aspirin (Verified Allergy, Severe, STOMACH BLEED, 03/02/14) Medications Eyelid surgery Rotator cuff surgery Cataract surgery Shoulder arthroplasty Family History Unable to obtain Social History No tobacco. No ETOH. (Rosa Ng) Review of Systems ROS Unable to obtain. Nurse reports melena. No n/v. No abdominal pain (Rosa Ng) GI Exam Vitals I&O Vital Signs Date Time Temp Pulse Resp B/P Pulse Ox O2 Delivery O2 Flow Rate FiO2 09/01/16 08:10 98.0 83 18 124/67 98 Nasal Cannula 4 09/01/16 07:45 97.8 78 18 143/63 97 Nasal Cannula 4 09/01/16 05:41 83 18 135/60 96 Nasal Cannula 4 09/01/16 04:19 84 18 154/67 98 Nasal Cannula 4 09/01/16 03:15 97 Nasal Cannula 4 09/01/16 03:14 86 18 136/91 97 4 09/01/16 02:25 94 18 143/81 96 Nasal Cannula 3 09/01/16 00:00 98 Nasal Cannula 3.00 08/31/16 23:01 76 18 135/63 98 Nasal Cannula 3 08/31/16 22:07 74 18 128/61 93 Nasal Cannula 3 08/31/16 21:05 95 18 162/98 95 Room Air 08/31/16 19:10 85 18 166/81 95 Room Air 08/31/16 18:34 99.1 94 20 166/81 Imaging Last Impressions Hip and Pelvis X-Ray 08/31/161853 Signed Impressions: Service Date/Time: Wednesday, August 31, 2016 19:16 - CONCLUSION: Mild osteoarthritic left hip. Slight contour abnormality of the left femoral neck could be a ridge of osteophytes versus nondisplaced fracture. CT of the left hip without contrast may be warranted. Navarro Randolph MD Head CT 08/31/161853 Signed Impressions: Service Date/Time: Wednesday, August 31, 2016 19:26 - CONCLUSION: 1. Low attenuation in the left brain stem, left cerebellum and medial left temporal lobe. Acute infarction cannot be excluded. 2. Cerebral atrophy and chronic ischemic small vessel vasculopathy. Navarro Randolph MD Chest X-Ray 08/31/161853 Signed Impressions: Service Date/Time: Wednesday, August 31, 2016 19:20 - CONCLUSION: 1. Moderate enlargement of the cardiac silhouette likely cardiomyopathy. 2. Retrocardiac density likely hiatal hernia. Navarro Randolph MD Cervical Spine CT 08/31/161853 Signed Impressions: Service Date/Time: Wednesday, August 31, 2016 19:28 - CONCLUSION: 1. Scoliosis and multilevel degenerative changes. 2. Minimal anterolisthesis C3 on C4 and C4 on C5. Navarro Randolph MD Lower Extremity CT 08/31/16 0000 Signed Impressions: Service Date/Time: Wednesday, August 31, 2016 19:35 - CONCLUSION: Mild degenerative changes of each hip. No fracture along the left hip. Navarro Randolph MD Laboratory Test 08/31/16 08/31/16 09/01/16 09/01/16 19:17 21:15 02:20 03:55 White Blood Count 14.5 TH/MM3 14.9 TH/MM3 Red Blood Count 4.65 MIL/MM3 4.20 MIL/MM3 Hemoglobin 14.3 GM/DL 12.8 GM/DL Hematocrit 43.9 % 39.3 % Mean Corpuscular Volume 94.5 FL 94.4 FL Mean Corpuscular Hemoglobin 30.7 PG 30.8 PG Mean Corpuscular Hemoglobin 32.5 % 32.6 % Concent Red Cell Distribution Width 14.1 % 14.3 % Platelet Count 249 TH/MM3 232 TH/MM3 Mean Platelet Volume 9.3 FL 9.3 FL Neutrophils (%) (Auto) 88.5 % 79.8 % Lymphocytes (%) (Auto) 5.0 % 10.4 % Monocytes (%) (Auto) 6.3 % 9.5 % Eosinophils (%) (Auto) 0.0 % 0.0 % Basophils (%) (Auto) 0.2 % 0.3 % Neutrophils # (Auto) 12.8 TH/MM3 11.9 TH/MM3 Lymphocytes # (Auto) 0.7 TH/MM3 1.5 TH/MM3 Monocytes # (Auto) 0.9 TH/MM3 1.4 TH/MM3 Eosinophils # (Auto) 0.0 TH/MM3 0.0 TH/MM3 Basophils # (Auto) 0.0 TH/MM3 0.0 TH/MM3 CBC Comment DIFF FINAL DIFF FINAL Differential Comment Prothrombin Time 11.1 SEC Prothromb Time International 1.0 RATIO Ratio Activated Partial 23.8 SEC Thromboplast Time Sodium Level 143 MEQ/L 145 MEQ/L Potassium Level 5.3 MEQ/L 5.3 MEQ/L Chloride Level 107 MEQ/L 111 MEQ/L Carbon Dioxide Level 26.7 MEQ/L 26.0 MEQ/L Anion Gap 9 MEQ/L 8 MEQ/L Blood Urea Nitrogen 49 MG/DL 48 MG/DL Creatinine 1.77 MG/DL 1.62 MG/DL Estimat Glomerular Filtration 27 ML/MIN 30 ML/MIN Rate Random Glucose 119 MG/DL 96 MG/DL Calcium Level 11.7 MG/DL 10.7 MG/DL Protein Corrected Calcium 11.3 MG/DL Total Bilirubin 1.6 MG/DL 1.5 MG/DL Aspartate Amino Transf 174 U/L 233 U/L (AST/SGOT) Alanine Aminotransferase 69 U/L 74 U/L (ALT/SGPT) Alkaline Phosphatase 132 U/L 122 U/L Total Creatine Kinase 3757 U/L 4611 U/L Creatine Kinase MB 65.9 NG/ML 58.7 NG/ML Creatine Kinase MB % 1.8 % 1.3 % Troponin I 0.79 NG/ML 1.12 NG/ML Total Protein 7.8 GM/DL 6.6 GM/DL Albumin 3.7 GM/DL 3.0 GM/DL Urine Color YELLOW Urine Turbidity CLEAR Urine pH 5.0 Urine Specific [place] 1.018 Urine Protein 30 mg/dL Urine Glucose (UA) NEG mg/dL Urine Ketones NEG mg/dL Urine Occult Blood MOD Urine Nitrite NEG Urine Bilirubin NEG Urine Urobilinogen LESS THAN 2.0 MG/DL Urine Leukocyte Esterase NEG Urine RBC 1 /hpf Urine Amorphous Sediment MOD Microscopic Urinalysis Comment CATH-CULT NOT IND Phosphorus Level 3.9 MG/DL Magnesium Level 2.0 MG/DL Date/Time Procedure Status Source Growth 08/31/16 19:17 Aerobic Blood Culture Received Blood Peripheral Pending 08/31/16 19:17 Anaerobic Blood Culture Received Blood Peripheral Pending Physical Examination HEENT: Left eye ecchymotic CHEST: CTA, diminished CARDIAC: Irregular ABDOMEN: Soft, nondistended, nontender; no hepatosplenomegaly; bowel sounds are present in all four quadrants. EXTREMITIES: LUE edema. 3+ BLE edema with blisters noted SKIN: Blisters noted to BLE ELECTROCARDIOGRAPH TECHNICIAN: Lethargic oriented to self (Rosa Ng) Assessment and Plan Plan ASSESSMENT: - Melena. Nurse reports that she received in report that she had a melanotic stool overnight. She has not had any further episodes although there is a smear of dark stool on the pad. HH stable at 12.8/39.3. Add Protonix. Monitor HH. SHe is on Plavix and heparin, but also there is some concern of ID and CVA and therefore would just closely monitor for bleeding. - Elevated LFTs. T Bili 1.5, AST 233, ALT 74, Alk Phosph 122. ? R/T rhabdo. Will get US, hepatitis panel. Consider Liver workup if no improvement once rhabdo improves. - Leukocytosis. WBC 14.9. - Rhabdomyolysis, S/P Fall. CPK 4611. IVF per CCM. - Elevated Troponin. Troponin from 0.79-1.12. Cardiology consulted. - Atrial fibrillation. Per [facility] with electrolyte abnormalities. Creat 1.62, K+ 5.3. - Abn. imaging of the head on CT, concerning for acute infarct. CT Scan of the head (08/31/16) which revealed 1. Low attenuation in the left brain stem, left cerebellum and medial left temporal lobe. Acute infarction cannot be excluded. 2. Cerebral atrophy and chronic ischemic small vessel vasculopathy. MRI pending. - HTN, Hyperlipidemia per [facility]. PLAN: - JAVON - Protonix 40mg IV BID - Serial HH's - Transfuse as necessary - Cardiology consulted - MRI brain pending. - Notify GI of active bleeding - Supportive care - Further recommendations to follow based on results of above - Pt seen and examined by Dr. Victor and myself and this note is written on her behalf (Rosa Ng) Physician Comments seen, examined agree with above (Sabrina Victor MD) Rosa Ng Sep 01, 2016 09:04 Sabrina Victor MD Sep 01, 2016 14:52
[2016-09-01] MEDS: PSYLLIUM FIBER SF/GF 6 GM POWD PKT PO SCH (09:42)
[2016-09-01] MEDS: OXYBUTYNIN CHLORIDE 5 MG TAB PO SCH ×2 (09:42→21:37)
[2016-09-01] MEDS: ESTROGENS CONJUGATED 0.625 MG TAB PO SCH (09:43)
[2016-09-01] MEDS: MULTIVITAMIN-OPHTHALMIC 1 TAB PO SCH (09:43)
--- NOTE | 2016-09-01 10:26 | RADRPT ---
EXAM DATE/TIME: 09/01/2016 09:17 [place] COMPARISON: CT BRAIN W/O CONTRAST, August 31, 2016, 19:26. INDICATIONS : Confusion. MEDICAL HISTORY : Hypertension. Hypercholesterolemia. SURGICAL HISTORY : Inguinal hernia repair. Bilateral shoulder surgery ENCOUNTER: Initial ACUITY: 1 day PAIN SCORE: 0/10 LOCATION: cranial TECHNIQUE: Multiplanar, multisequence MRI of the brain was performed without contrast. FINDINGS: CEREBRUM: The ventricles and cortical sulci are widened. No evidence of midline shift, mass lesion, hemorrhage or acute infarction. No extraaxial fluid collections are seen. The pituitary gland and suprasellar cistern are normal in configuration. WHITE MATTER: There is scattered increased signal throughout the periventricular white matter. POSTERIOR FOSSA: The cerebellum and brainstem are intact. The 4th ventricle is midline. The cerebellopontine angle is unremarkable. The cerebellar tonsils are normal in position. DIFFUSION IMAGING: No focal areas of restricted diffusion are seen. No evidence of acute infarction. EXTRACRANIAL: The visualized portions of the orbits and paranasal sinuses are unremarkable. There is increased sign al throughout the left mastoid. CONCLUSION: 1. No acute intracranial abnormality seen. 2. There is some atrophy. 3. There is a demyelination in the periventricular white matter. This is nonspecific. Demyelination i s commonly secondary to small vessel ischemic change. 4. Increased signal within the left mastoid related to fluid in the mastoid air cells. Tino Reece MD on September 01, 2016 at 10:21 Board Certified Radiologist. This report was verified electronically.
--- NOTE | 2016-09-01 11:18 | MB ---
cc: VIKTOR KIM M.D. DATE OF CONSULTATION: 09/01/2016 REASON FOR CONSULTATION: Elevation of troponin. CHIEF COMPLAINT The patient was found on the floor for 2 days. HISTORY OF PRESENT ILLNESS: This is an 85-year-old who apparently fell from her toilet in her home and was not able to get up and spent the last two days on the floor. The grandson found her and called the ambulance. Apparently she lost her balance and fell and was unable to get up. She had complained of some hip discomfort but CT scans negative for fracture. At the time I am seeing the patient. She seems extremely lethargic, I am not able to obtain any history from her all basically kept her eyes closed during my entire examine. PAST MEDICAL HISTORY: The past medical history is recorded from looking at the computer chart. She has a history of hypertension, dyslipidemia. PAST SURGERIES 1. Include cholecystectomy 2. Umbilical hernia 3. Hiatal hernia 4. Eyelid surgery for cancer 5. Rotator cuff surgery 6. Cataracts 7. Shoulder arthroplasty MEDICATIONS medications include 1. Triamterene/Hydrochlorothiazide. 2. Potassium 8 mV daily. 3. Allopurinol. 4. Iron 5. Fish oil. 6. Osteoflex. 7. Vitamins. 8. Metamucil. 9. Ditropan FAMILY HISTORY: Family history noncontributory. SOCIAL HISTORY Nonsmoker PHYSICAL EXAMINATION: IN GENERAL: The physical exam reveals an elderly white female extremely lethargic. VITAL SIGNS: The vital signs are charted. HEAD, EYES, EARS, NOSE, AND THROAT: Exam unremarkable. NECK: The neck reveals no jugular venous distention, no bruits. CHEST: The chest is clear anteriorly. CARDIOVASCULAR SYSTEM: Exam S1-S2 regular rate and rhythm. No murmurs, gallops. ABDOMEN: The abdomen is soft, nontender. No masses. EXTREMITIES: The extremities reveal some mild nonpitting edema in her feet. Pulses are intact. RADIOLOGIC: Electrocardiogram from 01:40 a.m. shows atrial fibrillation with ventricular rate of 85, poor R-wave progression, left axis deviation, no acute ST-T wave changes. EKG done at 06:45 p.m. on the shows a supraventricular rhythm but there is no clear P-waves, I am suspicious this may represent a fib as well looks much more regular. LABORATORY FINDINGS White count is elevated at 14,500 and repeat 14,900, hematocrit was 43.9 now down to 39.7, potassium and when she came was 5.3, BUN 49, creatinine 1.77. Those have improved. The potassium is still 5.3 but BUN is 48, creatinine 1.62, calcium is 11.7 on Coreg repeat 10.7. CPK was 3,757 repeat 4,611. Troponin was 0.79. Repeat 1.12, albumin is 3.0. RADIOLOGIC: CT scan of the head shows atrophy and small-vessel encephalopathy IMPRESSION Elevated troponin but no history to be able to tell that she has had an actually myocardial infarction. There is evidence for atrial fibrillation. She has had a increased risk of stroke on that basis she appears to have an abnormal mental status at this point I can not tell if it is just because she tired. She is currently being hydrated at this point and not suspicious for this being an acute MS. His likely that she will need anticoagulation but this difficult because she is a fall risk. Her renal indexes are markedly abnormal. At this point there are multiple ongoing issues of further therapy is yet to be determined. MD SAJI Layne/pamela /8:42 AM /11:06 AM
[2016-09-01 13:16] LABS: HEMATOCRIT 37.2 % (35.0-46.0); REVIEW FLAG FINAL
--- NOTE | 2016-09-01 13:33 | EKG ---
Date Performed: 08/31/2016 Time Performed: 18:45:41 PTAGE: 85 years EKG: SUPRAVENTRICULAR RHYTHM MARKED LEFT AXIS DEVIATION POSSIBLE ANTERIOR MYOCARDIAL INFARCTION ABNORMAL ECG Compared to prior tracing no significant change PREVIOUS TRACING : 10/11/2009 10.42 DOCTOR: Ben Mckeon Interpretating Date/Time 09/01/2016 13:31:42
--- NOTE | 2016-09-01 13:34 | EKG ---
Date Performed: 09/01/2016 Time Performed: 09:06:26 PTAGE: 85 years EKG: ATRIAL FIBRILLATION WITH ABERRANT CONDUCTION OR VENTRICULAR PREMATURE COMPLEXES LEFT ANTERI OR FASCICULAR BLOCK ANTEROSEPTAL MYOCARDIAL INFARCTION ABNORMAL ECG Compared to prior tracing no sign ificant change PREVIOUS TRACING : 09/01/2016 01.40 DOCTOR: Ben Mckeon Interpretating Date/Time 09/01/2016 13:32:01
--- NOTE | 2016-09-01 13:34 | EKG ---
Date Performed: 09/01/2016 Time Performed: 01:40:10 PTAGE: 85 years EKG: ATRIAL FIBRILLATION MARKED LEFT AXIS DEVIATION INCOMPLETE RIGHT BUNDLE BRANCH BLOCK POSSIBL E ANTERIOR MYOCARDIAL INFARCTION ABNORMAL ECG Compared to prior tracing no significant change PREVIOUS TRACING : 08/31/2016 18.45 DOCTOR: Ben Mckeon Interpretating Date/Time 09/01/2016 13:31:53
[2016-09-01 14:16] LABS: CKMB 25.9 NG/ML (0.5-3.6)
--- NOTE | 2016-09-01 14:59 | HHI.CCPN ---
Subjective Remarks/Hospital Course 85-year-old female presents the emergency department via EMS status post fall from her toilet at home 2 days prior to this visit. Patient was unable to get up and spent the last 2 days on the floor. Her grandson found her this afternoon and called the ambulance. Patient lost balance and fell, and then was unable to get up. She does complain of some left hip discomfort, however her CT was negative for any fractures. The patient's Main complaint is of extreme thirst. Patient denies thoracic pain or shortness of breath. Patient denies abdominal pain. She is alert and oriented 3. She is allergic to aspirin. 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 09/01 Patient is awake , alert lying in bed in NAD. Afebrile. MRI brain no acute intracranial abnormalities. Afebrile. Objective Vital Signs Date Time Temp Pulse Resp B/P Pulse Ox O2 Delivery O2 Flow Rate FiO2 09/01/16 12:44 98.2 98 18 125/63 98 Nasal Cannula 3 Result Diagram: 09/01/16 1248 09/01/16 0220 Other Results Laboratory Tests Test 08/31/16 08/31/16 09/01/16 09/01/16 19:17 21:15 02:20 03:55 White Blood Count 14.5 TH/MM3 14.9 TH/MM3 Red Blood Count 4.65 MIL/MM3 4.20 MIL/MM3 Hemoglobin 14.3 GM/DL 12.8 GM/DL Hematocrit 43.9 % 39.3 % Mean Corpuscular Volume 94.5 FL 94.4 FL Mean Corpuscular Hemoglobin 30.7 PG 30.8 PG Mean Corpuscular Hemoglobin 32.5 % 32.6 % Concent Red Cell Distribution Width 14.1 % 14.3 % Platelet Count 249 TH/MM3 232 TH/MM3 Mean Platelet Volume 9.3 FL 9.3 FL Neutrophils (%) (Auto) 88.5 % 79.8 % Lymphocytes (%) (Auto) 5.0 % 10.4 % Monocytes (%) (Auto) 6.3 % 9.5 % Eosinophils (%) (Auto) 0.0 % 0.0 % Basophils (%) (Auto) 0.2 % 0.3 % Neutrophils # (Auto) 12.8 TH/MM3 11.9 TH/MM3 Lymphocytes # (Auto) 0.7 TH/MM3 1.5 TH/MM3 Monocytes # (Auto) 0.9 TH/MM3 1.4 TH/MM3 Eosinophils # (Auto) 0.0 TH/MM3 0.0 TH/MM3 Basophils # (Auto) 0.0 TH/MM3 0.0 TH/MM3 CBC Comment DIFF FINAL DIFF FINAL Differential Comment Prothrombin Time 11.1 SEC Prothromb Time International 1.0 RATIO Ratio Activated Partial 23.8 SEC Thromboplast Time Sodium Level 143 MEQ/L 145 MEQ/L Potassium Level 5.3 MEQ/L 5.3 MEQ/L Chloride Level 107 MEQ/L 111 MEQ/L Carbon Dioxide Level 26.7 MEQ/L 26.0 MEQ/L Anion Gap 9 MEQ/L 8 MEQ/L Blood Urea Nitrogen 49 MG/DL 48 MG/DL Creatinine 1.77 MG/DL 1.62 MG/DL Estimat Glomerular Filtration 27 ML/MIN 30 ML/MIN Rate Random Glucose 119 MG/DL 96 MG/DL Calcium Level 11.7 MG/DL 10.7 MG/DL Protein Corrected Calcium 11.3 MG/DL Total Bilirubin 1.6 MG/DL 1.5 MG/DL Aspartate Amino Transf 174 U/L 233 U/L (AST/SGOT) Alanine Aminotransferase 69 U/L 74 U/L (ALT/SGPT) Alkaline Phosphatase 132 U/L 122 U/L Total Creatine Kinase 3757 U/L 4611 U/L Creatine Kinase MB 65.9 NG/ML 58.7 NG/ML Creatine Kinase MB % 1.8 % 1.3 % Troponin I 0.79 NG/ML 1.12 NG/ML Total Protein 7.8 GM/DL 6.6 GM/DL Albumin 3.7 GM/DL 3.0 GM/DL Urine Color YELLOW Urine Turbidity CLEAR Urine pH 5.0 Urine Specific Sherrill 1.018 Urine Protein 30 mg/dL Urine Glucose (UA) NEG mg/dL Urine Ketones NEG mg/dL Urine Occult Blood MOD Urine Nitrite NEG Urine Bilirubin NEG Urine Urobilinogen LESS THAN 2.0 MG/DL Urine Leukocyte Esterase NEG Urine RBC 1 /hpf Urine Amorphous Sediment MOD Microscopic Urinalysis Comment CATH-CULT NOT IND Phosphorus Level 3.9 MG/DL Magnesium Level 2.0 MG/DL Test 09/01/16 12:48 Hemoglobin 11.8 GM/DL Hematocrit 37.2 % Total Creatine Kinase 2614 U/L Creatine Kinase MB 25.9 NG/ML Creatine Kinase MB % 1.0 % Troponin I 1.07 NG/ML Imaging Last Impressions Brain MRI 09/01/16 0000 Signed Impressions: Service Date/Time: Thursday, September 01, 2016 09:17 - CONCLUSION: 1. No acute intracranial abnormality seen. 2. There is some atrophy. 3. There is a demyelination in the periventricular white matter. This is nonspecific. Demyelination is commonly secondary to small vessel ischemic change. 4. Increased signal within the left mastoid related to fluid in the mastoid air cells. Tino Reece MD Hip and Pelvis X-Ray 08/31/[id number] Signed Impressions: Service Date/Time: Wednesday, August 31, 2016 19:16 - CONCLUSION: Mild osteoarthritic left hip. Slight contour abnormality of the left femoral neck could be a ridge of osteophytes versus nondisplaced fracture. CT of the left hip without contrast may be warranted. Navarro Randolph MD Head CT [id number]/31/161853 Signed Impressions: Service Date/Time: Wednesday, August 31, 2016 19:26 - CONCLUSION: 1. Low attenuation in the left brain stem, left cerebellum and medial left temporal lobe. Acute infarction cannot be excluded. 2. Cerebral atrophy and chronic ischemic small vessel vasculopathy. Navarro Randolph MD Chest X-Ray 08/31/161853 Signed Impressions: Service Date/Time: Wednesday, August 31, 2016 19:20 - CONCLUSION: 1. Moderate enlargement of the cardiac silhouette likely cardiomyopathy. 2. Retrocardiac density likely hiatal hernia. Navarro Randolph MD Cervical Spine CT 08/31/[id number] Signed Impressions: Service Date/Time: Wednesday, August 31, 2016 19:28 - CONCLUSION: 1. Scoliosis and multilevel degenerative changes. 2. Minimal anterolisthesis C3 on C4 and C4 on C5. Navarro Randolph MD Lower Extremity CT 08/31/16 0000 Signed Impressions: Service Date/Time: Wednesday, August 31, 2016 19:35 - CONCLUSION: Mild degenerative changes of each hip. No fracture along the left hip. Navarro Rnadolph MD Objective Remarks GENERAL: Well-nourished, well-developed patient. SKIN: Warm and dry. HEAD: Normocephalic. EYES: Left eye ecchymosis NECK: Supple, trachea midline. No JVD or lymphadenopathy. CARDIOVASCULAR: Regular rate and rhythm without murmurs, gallops, or rubs. RESPIRATORY: Breath sounds equal bilaterally. No accessory muscle use. GASTROINTESTINAL: Abdomen soft, non-tender, nondistended. MUSCULOSKELETAL: No cyanosis, or edema. BACK: Nontender without obvious deformity. No CVA tenderness. EXTREMITIES: No clubbing cyanosis or edema A/P Assessment and Plan 1)Resp Insuff 2)Rhabdomyolysis 3)Status post fall and immobility 4)Cardiomyopathy 5)Iron deficiency anemia 6)Elevated LFT 7)SOFÍA 8)Hypercalcemia 9)Elevated trop 10)Leukocytosis 11)HTN Plan Neuro: Awake and alert. MRI brain today showed no acute intracranial abnormalities Pulm: Continue with oxygen keep sat >92% Bronchodilators CV: Monitor HR and BP keep MAP>65mmHg. Monitor CK/trop. seen by cards- Dr. Rosen. Follow up on echo results. : Monitor renal function, I/O's, avoid nephrotoxins Change IVF to D5NS@75ml/hr, monitor CK's GI: On mechanical soft diet per speech., Protonix 40mg Q12 Monitor LFT's, check US liver, GI is following. Follow up on Hepatitis profile. ID: D/C PO Keflex and place on Zosyn. Monitor for signs of infections ( Fever, WBC) Follow up on BC. Heme: Monitor CBC, on Fe sulfate 325mg qhs Endo: SSI if needed for glycemic control GI prophylaxis- on Protonix 40mg BID DVT prophylaxis- on Heparin SQ Will sign off and transfer care to [facility] in am Level 3 Jeanna Brady MD Sep 01, 2016 14:59
[2016-09-01 17:14] LABS: HEMATOCRIT 39.8 % (35.0-46.0); REVIEW FLAG FINAL
[2016-09-01] MEDS: PIPERACIL-TAZO 3.375 GM PREMIX 50 ML IV SCH ×2 (18:27→21:37)
[2016-09-01] MEDS: DEXT 5%-NACL 0.9% 1000 ML INJ 1,000 ML IV SCH (18:28)
[2016-09-01 21:28] LABS: HEMATOCRIT 38.5 % (35.0-46.0); REVIEW FLAG FINAL
[2016-09-01] MEDS: FERROUS SULFATE 325 MG (65 MG ELEMENTAL IRON) TAB PO SCH (21:37)
[2016-09-01] MEDS: MIRTAZAPINE 15 MG TAB PO SCH (21:37)
[2016-09-02] VITALS (10 sets, daily range): BP systolic 104–119; BP diastolic 53–83; PULSE 62–120; RESP 16–24; TEMP 96.6–99.5; O2SAT 96–100
[2016-09-02] MEDS: PANTOPRAZOLE SODIUM 40 MG VIAL IV PUSH SCH (04:12)
[2016-09-02] MEDS: CHLORHEXIDINE GLUCONATE 2 % 1 PACK (2 CLOTHS) TOP SCH ×2 (04:13→21:25)
[2016-09-02] MEDS: PIPERACIL-TAZO 3.375 GM PREMIX 50 ML IV SCH (04:13)
[2016-09-02] MEDS: DEXT 5%-NACL 0.9% 1000 ML INJ 1,000 ML IV SCH (04:16)
[2016-09-02 05:00] LABS: BASOPHIL % 0.3 % (0.0-2.0); EOSINOPHIL % 0.3 % (0.0-4.0); HEMATOCRIT 33.7 % (35.0-46.0); HEMO FLAGS DIFF FINAL; LYMPH % 14.1 % (9.0-44.0); LYMPHOCYTE # 1.5 TH/MM3 (1.0-4.8); MEAN CELL VOLUME 94.6 FL (80.0-100.0); MEAN CORPUSCULAR HEMOGLOBIN 31.9 PG (27.0-34.0); MEAN CORPUSCULAR HGB CONC 33.7 % (32.0-36.0); MONO % 9.8 % (0.0-8.0); NEUT % 75.5 % (16.0-70.0); PLATELET COUNT 188 TH/MM3 (150-450); RED BLOOD COUNT 3.57 MIL/MM3 (4.00-5.30); RED CELL DISTRIBUTION WIDTH 14.4 % (11.6-17.2); WHITE BLOOD COUNT 10.6 TH/MM3 (4.0-11.0)
[2016-09-02 05:03] LABS: PROTHROMBIN TIME - PATIENT 10.7 SEC (9.8-11.6)
[2016-09-02 05:42] LABS: ALKALINE PHOSPHATASE 77 U/L (45-117); ALT (GPT) 58 U/L (10-53); ANION GAP 7 MEQ/L (5-15); AST (GOT) 126 U/L (15-37); BICARBONATE 25.6 MEQ/L (21.0-32.0); BLOOD UREA NITROGEN 48 MG/DL (7-18); CHLORIDE 108 MEQ/L (98-107); CREATINE KINASE 1213 U/L (26-192); GLOMERULAR FILTRATION RATE 31 ML/MIN (>89); MAGNESIUM 1.8 MG/DL (1.5-2.5); POTASSIUM 3.8 MEQ/L (3.5-5.1); SODIUM (NA) 141 MEQ/L (136-145); TOTAL BILIRUBIN ADULT 0.8 MG/DL (0.2-1.0)
[2016-09-02 06:08] LABS: CKMB 9.2 NG/ML (0.5-3.6)
[2016-09-02] MEDS: PSYLLIUM FIBER SF/GF 6 GM POWD PKT PO SCH (09:01)
[2016-09-02] MEDS: OXYBUTYNIN CHLORIDE 5 MG TAB PO SCH ×2 (09:01→21:24)
[2016-09-02] MEDS: MULTIVITAMIN-OPHTHALMIC 1 TAB PO SCH (09:01)
[2016-09-02] MEDS: ESTROGENS CONJUGATED 0.625 MG TAB PO SCH (09:01)
[2016-09-02] MEDS: SODIUM CHLORIDE 0.9% FLUSH 10 ML FLUSH SCH ×2 (09:02→21:00)
--- NOTE | 2016-09-02 09:13 | HHI.PR ---
Subjective Remarks agitated. asking for mirror to look at her bruised face Objective Vitals left facial ecchymosis./periorbital ecchymosis. heart reg lung cta abd s/nt ext no edema Vital Signs Date Time Temp Pulse Resp B/P Pulse Ox O2 Delivery O2 Flow Rate FiO2 09/02/16 08:00 99.1 65 24 113/56 96 09/02/16 06:00 65 09/02/16 04:00 99.5 67 18 104/59 98 09/02/16 04:00 67 09/02/16 02:00 72 09/02/16 00:00 97.7 120 20 108/83 100 09/02/16 00:00 120 09/01/16 22:00 70 09/01/16 21:00 98.6 69 18 106/56 100 09/01/16 20:00 112 09/01/16 19:24 93 Nasal Cannula 3.00 09/01/16 16:00 98.6 84 21 125/67 97 09/01/16 12:44 98.2 98 18 125/63 98 Nasal Cannula 3 09/01/16 11:00 98.1 101 18 120/81 98 Nasal Cannula 4 09/01/16 09:45 97.8 102 18 121/68 97 Nasal Cannula 4 09/01/16 09/01/16 09/02/16 15:00 23:00 07:00 Intake Total 220 ml 1640 ml Output Total 1800 ml 0 ml 800 ml Balance -1580 ml 0 ml 840 ml Intake Oral 220 ml 300 ml IV Total 1340 ml Output Urine Total 1800 ml 800 ml Stool Total 0 ml # Voids 1 # Bowel Movements 1 1 Result Diagram: 09/02/16 0312 09/02/16 0312 A/P Problem List: (1) Rhabdomyolysis Status: Acute Plan: Pt presents after having fall and lying on floor. Found to have rhabdomyolysis and some AMS. also acute on ckd 3 cardiology eval concerned about afib. cont ivf f/u pending blood cx. 05/16 positive monitor renal function and ck f/u echo for cardiomyopathy concern cont tele. PT eval poor anticoagulation candidate. will need snf. (2) Acute renal failure superimposed on stage 3 chronic kidney disease Status: Acute Plan: see above (3) HTN (hypertension) Status: Chronic Plan: cont rx Padilla Bello MD Sep 02, 2016 09:13
--- NOTE | 2016-09-02 09:54 | PD.CARD.PN ---
Subjective Subjective Remarks States she feels OK. Denies history of heart problems. No chest pain or dyspnea. Patients states her family lives with her but nurse reports that family states they live near her but not with her. She does not remember what happened before her hospitalization Objective Medications Current Medications Medications (Trade) Dose Ordered Sig/Kuldeep Route Start Time Stop Time Status Last Admin (NS Flush) 2 ml UNSCH PRN .XX 08/31/16 22:00 (NS Flush) 2 ml BID .XX 09/01/16 09:00 09/02/16 09:02 (Tylenol) 650 mg Q6H PRN PO 08/31/16 22:00 09/02/16 09:02 (Zofran Inj) 4 mg Q6H PRN IV 08/31/16 22:00 (Reglan Inj) 5 mg Q6H PRN IV 08/31/16 22:00 (Heparin Inj) 5,000 units Q12H SQ 08/31/16 22:00 09/01/16 21:36 Miscellaneous Information 1 [id number] XX 08/31/16 22:00 (Chlorhexidine 2% Cloth) 3 pack Taper DAILY@04 TOP 09/01/16 04:00 08/28/17 03:59 09/02/16 04:13 (Chlorhexidine 2% Cloth) 3 pack UNSCH PRN TOP 08/31/16 22:00 (Premarin) 0.625 mg DAILY PO 09/01/16 09:00 09/02/16 09:01 (Ferrous Sulfate) 325 mg HS PO 09/01/16 21:00 09/01/16 21:37 (Remeron) 30 mg HS PO 09/01/16 21:00 09/01/16 21:37 (Ocuvite) 1 tab DAILY PO 09/01/16 09:00 09/02/16 09:01 (Ditropan) 5 mg BID PO 09/01/16 09:00 09/02/16 09:01 (Restoril) 30 mg HS PRN PO 08/31/16 22:45 (Metamucil Smooth Texture Sf/ Gf Pkt) 1 pkt DAILY PO 09/01/16 09:00 09/02/16 09:01 Pantoprazole Sodium 40 mg 40 mg DAILY PO 09/03/16 09:00 (NS 1000 ml Inj) 1,000 ml @ 75 mls/hr [id number] IV 09/02/16 10:00 Vital Signs / I&O Vital Signs Date Time Temp Pulse Resp B/P Pulse Ox O2 Delivery O2 Flow Rate FiO2 09/02/16 08:00 99.1 65 24 113/56 96 09/02/16 06:00 65 09/02/16 04:00 99.5 67 18 104/59 98 09/02/16 04:00 67 09/02/16 02:00 72 09/02/16 00:00 97.7 120 20 108/83 100 09/02/16 00:00 120 09/01/16 22:00 70 09/01/16 21:00 98.6 69 18 106/56 100 09/01/16 20:00 112 09/01/16 19:24 93 Nasal Cannula 3.00 09/01/16 16:00 98.6 84 21 125/67 97 09/01/16 12:44 98.2 98 18 125/63 98 Nasal Cannula 3 09/01/16 11:00 98.1 101 18 120/81 98 Nasal Cannula 4 I/O 09/01/16 09/01/16 09/01/16 09/02/16 09/02/16 09/02/16 07:00 15:00 23:00 07:00 15:00 23:00 Intake Total 220 ml 1640 ml Output Total 1800 ml 0 ml 800 ml Balance -1580 ml 0 ml 840 ml Intake Oral 220 ml 300 ml IV Total 1340 ml Output Urine Total 1800 ml 800 ml Stool Total 0 ml # Voids 1 # Bowel Movements 1 1 Physical Exam Alert this AM. Talks normal. HEENT: ecchymosis left orbit Chest clear anteriorly CV S1 S2 RRR 1/6 LETI Echo: LVH, nl LV function on prelim look at bedside 1-2+ LE edema Laboratory Laboratory Tests Test 09/01/16 09/01/16 09/01/16 09/01/16 12:48 15:00 16:28 19:25 Hemoglobin 11.8 GM/DL 12.6 GM/DL Hematocrit 37.2 % 39.8 % Total Creatine Kinase 2614 U/L Creatine Kinase MB 25.9 NG/ML Creatine Kinase MB % 1.0 % Troponin I 1.07 NG/ML 0.94 NG/ML Nasal Screen MRSA (PCR) MRSA DETECTED Potassium Level 4.0 MEQ/L Test 09/01/16 09/02/16 21:06 03:12 Hemoglobin 12.6 GM/DL 11.4 GM/DL Hematocrit 38.5 % 33.7 % White Blood Count 10.6 TH/MM3 Red Blood Count 3.57 MIL/MM3 Mean Corpuscular Volume 94.6 FL Mean Corpuscular Hemoglobin 31.9 PG Mean Corpuscular Hemoglobin 33.7 % Concent Red Cell Distribution Width 14.4 % Platelet Count 188 TH/MM3 Mean Platelet Volume 9.3 FL Neutrophils (%) (Auto) 75.5 % Lymphocytes (%) (Auto) 14.1 % Monocytes (%) (Auto) 9.8 % Eosinophils (%) (Auto) 0.3 % Basophils (%) (Auto) 0.3 % Neutrophils # (Auto) 8.0 TH/MM3 Lymphocytes # (Auto) 1.5 TH/MM3 Monocytes # (Auto) 1.0 TH/MM3 Eosinophils # (Auto) 0.0 TH/MM3 Basophils # (Auto) 0.0 TH/MM3 CBC Comment DIFF FINAL Differential Comment Prothrombin Time 10.7 SEC Prothromb Time International 1.0 RATIO Ratio Sodium Level 141 MEQ/L Potassium Level 3.8 MEQ/L Chloride Level 108 MEQ/L Carbon Dioxide Level 25.6 MEQ/L Anion Gap 7 MEQ/L Blood Urea Nitrogen 48 MG/DL Creatinine 1.59 MG/DL Estimat Glomerular Filtration 31 ML/MIN Rate Random Glucose 145 MG/DL Calcium Level 10.1 MG/DL Phosphorus Level 2.7 MG/DL Magnesium Level 1.8 MG/DL Total Bilirubin 0.8 MG/DL Aspartate Amino Transf 126 U/L (AST/SGOT) Alanine Aminotransferase 58 U/L (ALT/SGPT) Alkaline Phosphatase 77 U/L Total Creatine Kinase 1213 U/L Creatine Kinase MB 9.2 NG/ML Creatine Kinase MB % 0.8 % Total Protein 5.5 GM/DL Albumin 2.5 GM/DL Imaging Last 48 hours Impressions Brain MRI 09/01/16 0000 Signed Impressions: Service Date/Time: Thursday, September 01, 2016 09:17 - CONCLUSION: 1. No acute intracranial abnormality seen. 2. There is some atrophy. 3. There is a demyelination in the periventricular white matter. This is nonspecific. Demyelination is commonly secondary to small vessel ischemic change. 4. Increased signal within the left mastoid related to fluid in the mastoid air cells. Tino Reece MD Hip and Pelvis X-Ray 08/31/161853 Signed Impressions: Service Date/Time: Wednesday, August 31, 2016 19:16 - CONCLUSION: Mild osteoarthritic left hip. Slight contour abnormality of the left femoral neck could be a ridge of osteophytes versus nondisplaced fracture. CT of the left hip without contrast may be warranted. Navarro Randolph MD Head CT 08/31/161853 Signed Impressions: Service Date/Time: Wednesday, August 31, 2016 19:26 - CONCLUSION: 1. Low attenuation in the left brain stem, left cerebellum and medial left temporal lobe. Acute infarction cannot be excluded. 2. Cerebral atrophy and chronic ischemic small vessel vasculopathy. Navarro Randolph MD Chest X-Ray 08/31/161853 Signed Impressions: Service Date/Time: Wednesday, August 31, 2016 19:20 - CONCLUSION: 1. Moderate enlargement of the cardiac silhouette likely cardiomyopathy. 2. Retrocardiac density likely hiatal hernia. Navarro Randolph MD Cervical Spine CT 08/31/161853 Signed Impressions: Service Date/Time: Wednesday, August 31, 2016 19:28 - CONCLUSION: 1. Scoliosis and multilevel degenerative changes. 2. Minimal anterolisthesis C3 on C4 and C4 on C5. Navarro Randolph MD Assessment and Plan Problem List: (1) Acute renal failure superimposed on stage 3 chronic kidney disease Assessment and Plan: Improved (2) Elevated troponin Assessment and Plan: No symptoms of MA. LV function nl. Rec. conservative care due to age/ frailty. I will F/U prn Houston Rosen MD Sep 02, 2016 09:54
[2016-09-02] MEDS: HEPARIN SODIUM - SQ 10,000 UNITS/ML VIAL SQ SCH ×2 (10:19→21:24)
[2016-09-02] MEDS: SODIUM CHLOR 0.9% 1000 ML INJ 1,000 ML IV SCH ×2 (10:20→21:25)
--- NOTE | 2016-09-02 11:38 | HHI.GIFU ---
Subjective Remarks Pts nurse reports that she was told in report from overnight that the pt had a brown colored BM with a small streak of BRBPR. Pt tolerated diet last night. She denies any abd pain. Objective Vitals I&O Vital Signs Date Time Temp Pulse Resp B/P Pulse Ox O2 Delivery O2 Flow Rate FiO2 09/02/16 10:08 99 Nasal Cannula 2.00 09/02/16 10:00 65 09/02/16 08:00 62 09/02/16 08:00 99.1 65 24 113/56 96 09/02/16 06:00 65 09/02/16 04:00 99.5 67 18 104/59 98 09/02/16 04:00 67 09/02/16 02:00 72 09/02/16 00:00 97.7 120 20 108/83 100 09/02/16 00:00 120 09/01/16 22:00 70 09/01/16 21:00 98.6 69 18 106/56 100 09/01/16 20:00 112 09/01/16 19:24 93 Nasal Cannula 3.00 09/01/16 16:00 98.6 84 21 125/67 97 09/01/16 12:44 98.2 98 18 125/63 98 Nasal Cannula 3 I/O 09/01/16 09/01/16 09/01/16 09/02/16 09/02/16 09/02/16 07:00 15:00 23:00 07:00 15:00 23:00 Intake Total 220 ml 1640 ml Output Total 1800 ml 0 ml 800 ml Balance -1580 ml 0 ml 840 ml Intake Oral 220 ml 300 ml IV Total 1340 ml Output Urine Total 1800 ml 800 ml Stool Total 0 ml # Voids 1 # Bowel Movements 1 1 Laboratory Laboratory Tests Test 09/01/16 09/01/16 09/01/16 09/01/16 12:48 15:00 16:28 19:25 Hemoglobin 11.8 12.6 Hematocrit 37.2 39.8 Total Creatine Kinase 2614 Creatine Kinase MB 25.9 Creatine Kinase MB % 1.0 Troponin I 1.07 0.94 Nasal Screen MRSA (PCR) MRSA DETECTED Potassium Level 4.0 Test 09/01/16 09/02/16 21:06 03:12 Hemoglobin 12.6 11.4 Hematocrit 38.5 33.7 White Blood Count 10.6 Red Blood Count 3.57 Mean Corpuscular Volume 94.6 Mean Corpuscular Hemoglobin 31.9 Mean Corpuscular Hemoglobin 33.7 Concent Red Cell Distribution Width 14.4 Platelet Count 188 Mean Platelet Volume 9.3 Neutrophils (%) (Auto) 75.5 Lymphocytes (%) (Auto) 14.1 Monocytes (%) (Auto) 9.8 Eosinophils (%) (Auto) 0.3 Basophils (%) (Auto) 0.3 Neutrophils # (Auto) 8.0 Lymphocytes # (Auto) 1.5 Monocytes # (Auto) 1.0 Eosinophils # (Auto) 0.0 Basophils # (Auto) 0.0 CBC Comment DIFF FINAL Differential Comment Prothrombin Time 10.7 Prothromb Time International 1.0 Ratio Sodium Level 141 Potassium Level 3.8 Chloride Level 108 Carbon Dioxide Level 25.6 Anion Gap 7 Blood Urea Nitrogen 48 Creatinine 1.59 Estimat Glomerular Filtration 31 Rate Random Glucose 145 Calcium Level 10.1 Phosphorus Level 2.7 Magnesium Level 1.8 Total Bilirubin 0.8 Aspartate Amino Transf 126 (AST/SGOT) Alanine Aminotransferase 58 (ALT/SGPT) Alkaline Phosphatase 77 Total Creatine Kinase 1213 Creatine Kinase MB 9.2 Creatine Kinase MB % 0.8 Total Protein 5.5 Albumin 2.5 Date/Time Procedure Status Source Growth 08/31/16 19:17 Aerobic Blood Culture - Preliminary Resulted Blood Peripheral NO GROWTH IN 2 DAYS 08/31/16 19:17 Anaerobic Blood Culture - Preliminary Resulted Blood Peripheral NO GROWTH IN 2 DAYS Imaging Last Impressions Brain MRI 09/01/16 0000 Signed Impressions: Service Date/Time: Thursday, September 01, 2016 09:17 - CONCLUSION: 1. No acute intracranial abnormality seen. 2. There is some atrophy. 3. There is a demyelination in the periventricular white matter. This is nonspecific. Demyelination is commonly secondary to small vessel ischemic change. 4. Increased signal within the left mastoid related to fluid in the mastoid air cells. Tino Reece MD Hip and Pelvis X-Ray 08/31/16 7535 Signed Impressions: Service Date/Time: Wednesday, August 31, 2016 19:16 - CONCLUSION: Mild osteoarthritic left hip. Slight contour abnormality of the left femoral neck could be a ridge of osteophytes versus nondisplaced fracture. CT of the left hip without contrast may be warranted. Navarro Randolph MD Head CT 08/31/161853 Signed Impressions: Service Date/Time: Wednesday, August 31, 2016 19:26 - CONCLUSION: 1. Low attenuation in the left brain stem, left cerebellum and medial left temporal lobe. Acute infarction cannot be excluded. 2. Cerebral atrophy and chronic ischemic small vessel vasculopathy. Navarro Randolph MD Chest X-Ray 08/31/161853 Signed Impressions: Service Date/Time: Wednesday, August 31, 2016 19:20 - CONCLUSION: 1. Moderate enlargement of the cardiac silhouette likely cardiomyopathy. 2. Retrocardiac density likely hiatal hernia. Navarro Randolph MD Cervical Spine CT 08/31/161853 Signed Impressions: Service Date/Time: Wednesday, August 31, 2016 19:28 - CONCLUSION: 1. Scoliosis and multilevel degenerative changes. 2. Minimal anterolisthesis C3 on C4 and C4 on C5. Navarro Randolph MD Lower Extremity CT 08/31/16 0000 Signed Impressions: Service Date/Time: Wednesday, August 31, 2016 19:35 - CONCLUSION: Mild degenerative changes of each hip. No fracture along the left hip. Navarro Randolph MD Physical Exam HEENT: Bruising on the left orbit. Throat is clear. NECK: Neck is supple. CHEST: CTA CARDIAC: Irregular ABDOMEN: +BS, soft, nondistended, nontender EXTREMITIES: No clubbing, cyanosis, or edema. SKIN: Normal; no rash; no jaundice. 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 Assessment and Plan Plan ASSESSMENT: - Melena. Nurse reports that she received in report that she had a melanotic stool overnight on 09/01 and she had one streak of BRBPR last night noted with a brown BM on 09/02. She has not had any further episodes. HH stable at 11.4/33.7. Protonix. Monitor HH. She is on heparin SQ. Cardiology has evaluated today and not recommending anticoagulation due to fall risk - Elevated LFTs. T Bili 1.5, AST 233, ALT 74, Alk Phosph 122, improving. Likely R/T rhabdo. US, hepatitis panel pending. - Leukocytosis. resolved - Rhabdomyolysis, S/P Fall. CPK 1213. IVF per attending - Elevated Troponin. Troponin from 0.79-1.12. Cardiology following. - Atrial fibrillation. Telemetry with AF rate controlled. Cardiology feels that at this point pt is not a good candidate for anticoagulation. - SOFÍA with electrolyte abnormalities. Creat 1.59. - Abn. imaging of the head on CT, concerning for acute infarct. CT Scan of the head (08/31/16) which revealed 1. Low attenuation in the left brain stem, left cerebellum and medial left temporal lobe. Acute infarction cannot be excluded. 2. Cerebral atrophy and chronic ischemic small vessel vasculopathy. MRI (09/01) ---> No acute intracranial abnormality seen. There is some atrophy. There is a demyelination in the periventricular white matter. This is nonspecific. Demyelination is commonly secondary to small vessel ischemic change. Increased signal within the left mastoid related to fluid in the mastoid air cells. - HTN, Hyperlipidemia per CCM. PLAN: - JAVON - Protonix 40mg IV BID - Monitor HH - Abd US pending - Hepatitis panel pending. - Transfuse as necessary - Notify GI of active bleeding - Supportive care - Further recommendations as the case develops - Pt seen and examined by Dr. Victor and myself and this note is written on her behalf Lori Green Sep 02, 2016 11:38
--- NOTE | 2016-09-02 17:19 | EC ---
Study Study Date:09/02/2016 STUDY CONCLUSIONS SUMMARY - Left ventricle: The cavity size was normal. Wall thickness was increased in a pattern of mild LVH. There was concentric hypertrophy. Systolic function was mildly reduced. The estimated ejection fraction was in the range of 45% to 50%. Although no diagnostic regional wall motion abnormality was identified, this possibility cannot be completely excluded on the basis of this study. Features are consistent with a pseudonormal left ventricular filling pattern, with concomitant abnormal relaxation and increased filling pressure (grade 2 diastolic dysfunction). - Mitral valve: Moderately calcified annulus. Mild regurgitation. - Left atrium: The atrium was dilated. - Right atrium: The atrium was dilated. - Tricuspid valve: Mild regurgitation. If LV function is below 40, please consider prescribing an ACEI or ARB or document rationale for non-use. PROCEDURE DATA STUDY STATUS: Elective. Procedure: Transthoracic echocardiography. Image quality was good. Scanning was performed from the parasternal, apical, and subcostal acoustic windows. Study completion: The patient tolerated the procedure well. Transthoracic echocardiography. M-mode, complete 2D, complete spectral Doppler, and color Doppler. Patient status: Inpatient. CARDIAC ANATOMY LEFT VENTRICLE: The cavity size was normal. Wall thickness was increased in a pattern of mild LVH. There was concentric hypertrophy. Systolic function was mildly reduced. The estimated ejection fraction was in the range of 45% to 50%. Although no diagnostic regional wall motion abnormality was identified, this possibility cannot be completely excluded on the basis of this study. Features are consistent with a pseudonormal left ventricular filling pattern, with concomitant abnormal relaxation and increased filling pressure (grade 2 diastolic dysfunction). AORTIC VALVE: Trileaflet; moderately thickened leaflets. Doppler: There was no stenosis. No significant regurgitation. Peak gradient: 11mm Hg (S). MITRAL VALVE: Moderately calcified annulus. Doppler: There was no evidence for stenosis. Mild regurgitation. Peak gradient: 3mm Hg (D). LEFT ATRIUM: The atrium was dilated. RIGHT VENTRICLE: The cavity size was normal. PULMONIC VALVE: Not visualized. Doppler: There was no evidence for stenosis. Trace regurgitation. TRICUSPID VALVE: The valve appears to be grossly normal. Doppler: There was no evidence for stenosis. Mild regurgitation. RIGHT ATRIUM: The atrium was dilated. BASIC MEASUREMENTS ADULT Normal Left ventricle LV internal dimension, ED, chordal level, *36.7 mm 43-52 PLAX LV internal dimension, ES, chordal level, 29.8 mm 23-38 PLAX Fractional shortening, chordal level, PLAX *19 % >29 LV posterior wall thickness, ED 14.2 mm IVS/LVPW ratio, ED 1.08 <1.3 Ventricular septum Septal thickness, ED 15.4 mm Aortic valve Leaflet separation 21 mm 15-26 Left atrium Anterior-posterior dimension 40 mm Right ventricle RV internal dimension, ED, PLAX 20.6 mm 19-38 BASIC MEASUREMENTS ADULT Normal Aortic valve Leaflet separation 21 mm 15-26 Aorta Root diameter, ED 32 mm 20-37 DOPPLER MEASUREMENTS ADULT Normal Aortic valve Peak velocity, S 168 cm/s Peak gradient, S 11 mm Hg Mitral valve Peak E-wave velocity 92.8 cm/s Peak A-wave velocity 30.1 cm/s Peak gradient, D 3 mm Hg Peak E/A ratio 3.1 Tricuspid valve Regurgitant peak velocity 259 cm/s Peak RV-RA gradient, S 27 mm Hg Maximal regurgitant velocity 259 cm/s LEGEND: Mean values are shown as u=mean value. Asterisk (*) shepard values outside specified normal range. Prepared and signed by Fran Mancera [id number]
[2016-09-02] MEDS: FERROUS SULFATE 325 MG (65 MG ELEMENTAL IRON) TAB PO SCH (21:24)
[2016-09-02] MEDS: TEMAZEPAM 15 MG CAP PO PRN (21:24)
[2016-09-02] MEDS: MIRTAZAPINE 15 MG TAB PO SCH (21:24)
--- NOTE | 2016-09-02 21:37 | RADRPT ---
EXAM DATE/TIME: 09/02/2016 17:10 [place] COMPARISON: No previous studies available for comparison. INDICATIONS : Increased lab values. MEDICAL HISTORY : Hypercholesterolemia. Hypertension. Hiatal hernia. Arthritis. Gout. Anemia. SURGICAL HISTORY : Cholecystectomy. Bilateral shoulder replacement. ENCOUNTER: Initial ACUITY: 2 days PAIN SCORE: 3/10 LOCATION: Abdomen. MEASUREMENTS: LIVER: 16.7 cm length COMMON DUCT: 5 mm RIGHT KIDNEY: 10.1 x 4.5 x 4.8 cm SPLEEN: 11.8 cm length FINDINGS: There is a small right pleural effusion significant costophrenic angle. LIVER: Normal echotexture without solid lesion or ductal dilatation. There is a cyst in the central right l obe which measures 1.8 x 1.6 x 1.4 cm. Hepatopedal flow seen in the portal vein. COMMON DUCT: No intraluminal mass or stone visualized. GALLBLADDER: Cholecystectomy. PANCREAS: The visualized portions are within normal limits. RIGHT KIDNEY: Normal renal cortical thickness. No evidence hydronephrosis. There is a small amount of fluid seen adjacent to the kidney, possibly within Morison's pouch. SPLEEN: No focal lesion. CONCLUSION: 1. No solid lesions in the liver. 2. Solitary cyst in the right lobe of the liver, small pleural effusion, and minimal amount of fluid in House's pouch. Da Sesay MD on September 02, 2016 at 21:32 Board Certified Radiologist. This report was verified electronically.
[2016-09-03] VITALS: BP 120/68; PULSE 100; RESP 20; TEMP 97.8; O2SAT 98
[2016-09-03 06:58] LABS: BICARBONATE 27.4 MEQ/L (21.0-32.0); POTASSIUM 3.6 MEQ/L (3.5-5.1)
[2016-09-03 07:14] LABS: CKMB 2.8 NG/ML (0.5-3.6)
[2016-09-03 08:00] VITALS: BP 133/56; PULSE 64; RESP 10; TEMP 97.2; O2SAT 96
[2016-09-03] MEDS: SODIUM CHLORIDE 0.9% FLUSH 10 ML FLUSH SCH ×2 (09:00→21:00)
[2016-09-03] MEDS: HEPARIN SODIUM - SQ 10,000 UNITS/ML VIAL SQ SCH ×2 (09:20→21:10)
[2016-09-03] MEDS: PSYLLIUM FIBER SF/GF 6 GM POWD PKT PO SCH (09:20)
[2016-09-03] MEDS: PANTOPRAZOLE SOD 40 MG DELAYED RELEASE TAB PO SCH (09:20)
[2016-09-03] MEDS: MULTIVITAMIN-OPHTHALMIC 1 TAB PO SCH (09:20)
[2016-09-03] MEDS: OXYBUTYNIN CHLORIDE 5 MG TAB PO SCH ×2 (09:22→21:10)
[2016-09-03] MEDS: ESTROGENS CONJUGATED 0.625 MG TAB PO SCH (09:30)
[2016-09-03 12:00] VITALS: BP 132/66; PULSE 64; RESP 16; TEMP 98.5; O2SAT 94
--- NOTE | 2016-09-03 12:05 | HHI.GIFU ---
Subjective Remarks Resting in bed. Appetite good. No n/v. No abdominal pain. (NgRosa Maineevelyne MENDOZA) Objective Vitals I&O Vital Signs Date Time Temp Pulse Resp B/P Pulse Ox O2 Delivery O2 Flow Rate FiO2 09/03/16 08:00 97.2 64 10 133/56 96 09/03/16 00:00 97.8 100 20 120/68 98 09/02/16 20:00 98.2 116 20 119/71 99 09/02/16 16:00 96.6 63 16 105/53 100 I/O 09/02/16 09/02/16 09/02/16 09/03/16 09/03/16 09/03/16 07:00 15:00 23:00 07:00 15:00 23:00 Intake Total 1640 ml 1022 ml 720 ml 220 ml Output Total 800 ml 450 ml 600 ml 400 ml Balance 840 ml 572 ml 120 ml -180 ml Intake Oral 300 ml 240 ml 220 ml 220 ml IV Total 1340 ml 782 ml 500 ml Output Urine Total 800 ml 450 ml 600 ml 400 ml Stool Total 0 ml Emesis 0 ml # Bowel Movements 1 0 0 Laboratory Laboratory Tests Test 09/03/16 05:46 Sodium Level 143 Potassium Level 3.6 Chloride Level 110 Carbon Dioxide Level 27.4 Anion Gap 6 Blood Urea Nitrogen 37 Creatinine 1.49 Estimat Glomerular Filtration 33 Rate Random Glucose 90 Calcium Level 9.5 Total Creatine Kinase 343 Creatine Kinase MB 2.8 Creatine Kinase MB % 0.8 Date/Time Procedure Status Source Growth 08/31/16 19:17 Aerobic Blood Culture - Preliminary Resulted Blood Peripheral Staph Sp Coagulase Negative 08/31/16 19:17 Anaerobic Blood Culture - Preliminary Resulted Blood Peripheral NO GROWTH IN 3 DAYS Imaging Last Impressions Liver Ultrasound 09/02/16 0000 Signed Impressions: Service Date/Time: Friday, September 02, 2016 17:10 - CONCLUSION: 1. No solid lesions in the liver. 2. Solitary cyst in the right lobe of the liver, small pleural effusion, and minimal amount of fluid in House's pouch. Da Sesay MD Brain MRI 09/01/16 0000 Signed Impressions: Service Date/Time: Thursday, September 01, 2016 09:17 - CONCLUSION: 1. No acute intracranial abnormality seen. 2. There is some atrophy. 3. There is a demyelination in the periventricular white matter. This is nonspecific. Demyelination is commonly secondary to small vessel ischemic change. 4. Increased signal within the left mastoid related to fluid in the mastoid air cells. Tino Reece MD Hip and Pelvis X-Ray 08/31/161853 Signed Impressions: Service Date/Time: Wednesday, August 31, 2016 19:16 - CONCLUSION: Mild osteoarthritic left hip. Slight contour abnormality of the left femoral neck could be a ridge of osteophytes versus nondisplaced fracture. CT of the left hip without contrast may be warranted. Navarro Randolph MD Head CT 08/31/161853 Signed Impressions: Service Date/Time: Wednesday, August 31, 2016 19:26 - CONCLUSION: 1. Low attenuation in the left brain stem, left cerebellum and medial left temporal lobe. Acute infarction cannot be excluded. 2. Cerebral atrophy and chronic ischemic small vessel vasculopathy. Navarro Randolph MD Chest X-Ray 08/31/161853 Signed Impressions: Service Date/Time: Wednesday, August 31, 2016 19:20 - CONCLUSION: 1. Moderate enlargement of the cardiac silhouette likely cardiomyopathy. 2. Retrocardiac density likely hiatal hernia. Navarro Randolph MD Cervical Spine CT 08/31/161853 Signed Impressions: Service Date/Time: Wednesday, August 31, 2016 19:28 - CONCLUSION: 1. Scoliosis and multilevel degenerative changes. 2. Minimal anterolisthesis C3 on C4 and C4 on C5. Navarro Randolph MD Lower Extremity CT 08/31/16 0000 Signed Impressions: Service Date/Time: Wednesday, August 31, 2016 19:35 - CONCLUSION: Mild degenerative changes of each hip. No fracture along the left hip. Navarro Randolph MD Physical Exam HEENT: Bruising on the left orbit. Throat is clear. NECK: Neck is supple. CHEST: CTA CARDIAC: Irregular ABDOMEN: +BS, soft, nondistended, nontender EXTREMITIES: No clubbing, cyanosis, or edema. SKIN: Normal; no rash; no jaundice. CHARTERED ACCOUNTANT: No focal deficits; alert and oriented times three. (Rosa Ng [facility]) Assessment and Plan Plan ASSESSMENT: - Melena. Nurse reports that she received in report that she had a melanotic stool overnight on 09/01 and she had one streak of BRBPR last night noted with a brown BM on 09/02. She has not had any further episodes. HH stable at 11.4/33.7. Protonix. Monitor HH. She is on heparin SQ. Cardiology has evaluated today and not recommending anticoagulation due to fall risk. She has not had any further bleeding. HH is stable at 11.4/33.7. - Elevated LFTs, likely R/T rhabdo. Liver Ultrasound (09/02/16)----> 1. No solid lesions in the liver. 2. Solitary cyst in the right lobe of the liver, small pleural effusion, and minimal amount of fluid in House's pouch. Hepatitis panel pending. LFTs are improving. Yesterdays, T. Bili 0.8, AST 126, ALT 58, Alk phosph 77. - Leukocytosis. resolved - Rhabdomyolysis, S/P Fall. IMPROVING. CPK, 343 today. - Elevated Troponin. Cardiology following, does not recommend anticoagulation secondary to the risk of falling.. - Atrial fibrillation. Telemetry with AF rate controlled. Cardiology feels that at this point pt is not a good candidate for anticoagulation. - SOFÍA with electrolyte abnormalities. Creat 1.49. - Abn. imaging of the head on CT, concerning for acute infarct. CT Scan of the head (08/31/16) which revealed 1. Low attenuation in the left brain stem, left cerebellum and medial left temporal lobe. Acute infarction cannot be excluded. 2. Cerebral atrophy and chronic ischemic small vessel vasculopathy. MRI (09/01) ---> No acute intracranial abnormality seen. There is some atrophy. There is a demyelination in the periventricular white matter. This is nonspecific. Demyelination is commonly secondary to small vessel ischemic change. Increased signal within the left mastoid related to fluid in the mastoid air cells. - HTN, Hyperlipidemia per CCM. PLAN: - JAVON - Protonix 40mg IV BID - Monitor HH - Monitor LFTs - Supportive care - Notify GI of active bleeding - Further recommendations as the case develops - Pt seen and examined by Dr. Judge and myself and this note is written on his behalf (Rosa Ng) Physician Comments Patient seen and examined Agree with above Continue with current supportive care Monitor labs (Oscar Judge MD) Rosa Ng Sep 03, 2016 12:05 Oscar Judge MD Sep 04, 2016 00:29
--- NOTE | 2016-09-03 14:24 | HHI.PR ---
Subjective Remarks No new complaints. Objective Vitals Vital Signs Date Time Temp Pulse Resp B/P Pulse Ox O2 Delivery O2 Flow Rate FiO2 09/03/16 08:00 97.2 64 10 133/56 96 09/03/16 00:00 97.8 100 20 120/68 98 09/02/16 20:00 98.2 116 20 119/71 99 09/02/16 16:00 96.6 63 16 105/53 100 09/02/16 09/02/16 09/03/16 15:00 23:00 07:00 Intake Total 1022 ml 720 ml 220 ml Output Total 450 ml 600 ml 400 ml Balance 572 ml 120 ml -180 ml Intake Oral 240 ml 220 ml 220 ml IV Total 782 ml 500 ml Output Urine Total 450 ml 600 ml 400 ml Stool Total 0 ml Emesis 0 ml # Bowel Movements 0 0 Result Diagram: 09/02/16 0312 09/03/16 0546 Imaging Last Impressions Liver Ultrasound 09/02/16 0000 Signed Impressions: Service Date/Time: Friday, September 02, 2016 17:10 - CONCLUSION: 1. No solid lesions in the liver. 2. Solitary cyst in the right lobe of the liver, small pleural effusion, and minimal amount of fluid in House's pouch. Da Sesay MD Brain MRI 09/01/16 0000 Signed Impressions: Service Date/Time: Thursday, September 01, 2016 09:17 - CONCLUSION: 1. No acute intracranial abnormality seen. 2. There is some atrophy. 3. There is a demyelination in the periventricular white matter. This is nonspecific. Demyelination is commonly secondary to small vessel ischemic change. 4. Increased signal within the left mastoid related to fluid in the mastoid air cells. Tino Reece MD Hip and Pelvis X-Ray 08/31/161853 Signed Impressions: Service Date/Time: Wednesday, August 31, 2016 19:16 - CONCLUSION: Mild osteoarthritic left hip. Slight contour abnormality of the left femoral neck could be a ridge of osteophytes versus nondisplaced fracture. CT of the left hip without contrast may be warranted. Navarro Randolph MD Head CT 08/31/161853 Signed Impressions: Service Date/Time: Wednesday, August 31, 2016 19:26 - CONCLUSION: 1. Low attenuation in the left brain stem, left cerebellum and medial left temporal lobe. Acute infarction cannot be excluded. 2. Cerebral atrophy and chronic ischemic small vessel vasculopathy. aNvarro Randolph MD Chest X-Ray 08/31/161853 Signed Impressions: Service Date/Time: Wednesday, August 31, 2016 19:20 - CONCLUSION: 1. Moderate enlargement of the cardiac silhouette likely cardiomyopathy. 2. Retrocardiac density likely hiatal hernia. Navarro Randolph MD Cervical Spine CT 08/31/161853 Signed Impressions: Service Date/Time: Wednesday, August 31, 2016 19:28 - CONCLUSION: 1. Scoliosis and multilevel degenerative changes. 2. Minimal anterolisthesis C3 on C4 and C4 on C5. Navarro Randolph MD Lower Extremity CT 08/31/16 0000 Signed Impressions: Service Date/Time: Wednesday, August 31, 2016 19:35 - CONCLUSION: Mild degenerative changes of each hip. No fracture along the left hip. Navarro Randolph MD Objective Remarks GENERAL: This is a well-nourished, well-developed patient, in no apparent distress. CARDIOVASCULAR: Regular rate and rhythm without murmurs, gallops, or rubs. RESPIRATORY: Clear to auscultation. Breath sounds equal bilaterally. No wheezes , rales, or rhonchi. GASTROINTESTINAL: Abdomen soft, non-tender, nondistended. Normal active bowel sounds MUSCULOSKELETAL: Extremities without clubbing, cyanosis, or edema. NEURO: Alert & Oriented x4 to person, place, time, situation. Moves all ext x4 A/P Problem List: (1) Rhabdomyolysis Status: Acute Plan: - Pt presented after having fall and lying on floor. - rhabdomyolysis and some AMS. - acute on ckd 3 - labs improved - PT - anticipate d/c to SNF 09/04/16 (2) Acute renal failure superimposed on stage 3 chronic kidney disease Status: Acute Plan: - improved to probable baseline (3) HTN (hypertension) Status: Chronic Plan: - stable off HCTZ (4) Paroxysmal atrial fibrillation Status: Acute Plan: - identified on telemetry - poor anticoagulation candidate - appreciate input from Cardiology - Echocardiogram - EF 40-45% - grade 2 diastolic dysfunction - Pt is NOT having sustained tachycardia - will NOT start rate controlling agent at this time - observe on telemetry Walter Marquez DO Sep 03, 2016 14:24
[2016-09-03 16:00] VITALS: BP 116/59; PULSE 60; RESP 15; TEMP 96.4; O2SAT 96
[2016-09-03 20:00] VITALS: BP 120/64; PULSE 68; RESP 18; TEMP 97.6; O2SAT 97
[2016-09-03] MEDS: TEMAZEPAM 15 MG CAP PO PRN (21:10)
[2016-09-03] MEDS: MIRTAZAPINE 15 MG TAB PO SCH (21:10)
[2016-09-03] MEDS: FERROUS SULFATE 325 MG (65 MG ELEMENTAL IRON) TAB PO SCH (21:10)
[2016-09-04] VITALS: BP 124/72; PULSE 70; RESP 20; TEMP 98; O2SAT 98
[2016-09-04 04:00] VITALS: BP 130/74; PULSE 69; RESP 20; TEMP 97.6; O2SAT 97
[2016-09-04] MEDS: CHLORHEXIDINE GLUCONATE 2 % 1 PACK (2 CLOTHS) TOP SCH (04:00)
[2016-09-04 05:16] LABS: AUTOMATED NEUTROPHIL # 4.3 TH/MM3 (1.8-7.7); BASOPHIL % 0.4 % (0.0-2.0); EOSINOPHIL # 0.1 TH/MM3 (0-0.4); EOSINOPHIL % 1.8 % (0.0-4.0); HEMATOCRIT 35.1 % (35.0-46.0); HEMO FLAGS DIFF FINAL; LYMPH % 23.1 % (9.0-44.0); LYMPHOCYTE # 1.5 TH/MM3 (1.0-4.8); MEAN CELL VOLUME 95.3 FL (80.0-100.0); MEAN CORPUSCULAR HEMOGLOBIN 30.5 PG (27.0-34.0); MONO % 10.6 % (0.0-8.0); NEUT % 64.1 % (16.0-70.0); PLATELET COUNT 172 TH/MM3 (150-450); RED BLOOD COUNT 3.69 MIL/MM3 (4.00-5.30); RED CELL DISTRIBUTION WIDTH 14.1 % (11.6-17.2); WHITE BLOOD COUNT 6.6 TH/MM3 (4.0-11.0)
[2016-09-04 05:36] LABS: ALKALINE PHOSPHATASE 82 U/L (45-117); ALT (GPT) 46 U/L (10-53); ANION GAP 5 MEQ/L (5-15); AST (GOT) 52 U/L (15-37); BICARBONATE 28.6 MEQ/L (21.0-32.0); BLOOD UREA NITROGEN 33 MG/DL (7-18); CHLORIDE 110 MEQ/L (98-107); CREATINE KINASE 163 U/L (26-192); GLOMERULAR FILTRATION RATE 34 ML/MIN (>89); POTASSIUM 3.5 MEQ/L (3.5-5.1); SODIUM (NA) 144 MEQ/L (136-145); TOTAL BILIRUBIN ADULT 0.4 MG/DL (0.2-1.0)
[2016-09-04 08:00] VITALS: BP 128/71; PULSE 63; RESP 17; TEMP 95.9; O2SAT 98
[2016-09-04] MEDS: ESTROGENS CONJUGATED 0.625 MG TAB PO SCH (08:28)
[2016-09-04] MEDS: SODIUM CHLORIDE 0.9% FLUSH 10 ML FLUSH SCH (08:28)
[2016-09-04] MEDS: MULTIVITAMIN-OPHTHALMIC 1 TAB PO SCH (08:28)
[2016-09-04] MEDS: OXYBUTYNIN CHLORIDE 5 MG TAB PO SCH (08:28)
[2016-09-04] MEDS: PANTOPRAZOLE SOD 40 MG DELAYED RELEASE TAB PO SCH (08:29)
--- NOTE | 2016-09-04 09:41 | HHI.GIFU ---
Subjective Remarks Pt resting in bed. No n/v, abdominal pain, bleeding. D/W patient concern with GIB, as she had the melena in the ER and recommendation for further evaluation with EGD. She states that she has not had any further episodes and does not wish to proceed with this. (Rosa Ng) Objective Vitals I&O Vital Signs Date Time Temp Pulse Resp B/P Pulse Ox O2 Delivery O2 Flow Rate FiO2 09/04/16 08:00 95.9 63 17 128/71 98 09/04/16 04:00 97.6 69 20 130/74 97 09/04/16 00:00 98.0 70 20 124/72 98 09/03/16 20:00 97.6 68 18 120/64 97 09/03/16 16:00 96.4 60 15 116/59 96 09/03/16 12:00 98.5 64 16 132/66 94 I/O 09/03/16 09/03/16 09/03/16 09/04/16 09/04/16 09/04/16 07:00 15:00 23:00 07:00 15:00 23:00 Intake Total 220 ml 375 ml 580 ml 360 ml Output Total 400 ml 500 ml 500 ml 400 ml Balance -180 ml -125 ml 80 ml -40 ml Intake Oral 220 ml 240 ml 480 ml 360 ml IV Total 135 ml 100 ml Output Urine Total 400 ml 500 ml 500 ml 400 ml # Bowel Movements 0 0 0 0 Laboratory Laboratory Tests Test 09/04/16 04:36 White Blood Count 6.6 Red Blood Count 3.69 Hemoglobin 11.3 Hematocrit 35.1 Mean Corpuscular Volume 95.3 Mean Corpuscular Hemoglobin 30.5 Mean Corpuscular Hemoglobin 32.0 Concent Red Cell Distribution Width 14.1 Platelet Count 172 Mean Platelet Volume 9.2 Neutrophils (%) (Auto) 64.1 Lymphocytes (%) (Auto) 23.1 Monocytes (%) (Auto) 10.6 Eosinophils (%) (Auto) 1.8 Basophils (%) (Auto) 0.4 Neutrophils # (Auto) 4.3 Lymphocytes # (Auto) 1.5 Monocytes # (Auto) 0.7 Eosinophils # (Auto) 0.1 Basophils # (Auto) 0.0 CBC Comment DIFF FINAL Differential Comment Sodium Level 144 Potassium Level 3.5 Chloride Level 110 Carbon Dioxide Level 28.6 Anion Gap 5 Blood Urea Nitrogen 33 Creatinine 1.46 Estimat Glomerular Filtration 34 Rate Random Glucose 99 Calcium Level 9.5 Total Bilirubin 0.4 Aspartate Amino Transf 52 (AST/SGOT) Alanine Aminotransferase 46 (ALT/SGPT) Alkaline Phosphatase 82 Total Creatine Kinase 163 Total Protein 5.6 Albumin 2.3 Date/Time Procedure Status Source Growth 08/31/16 19:17 Aerobic Blood Culture - Preliminary Resulted Blood Peripheral Staph Sp Coagulase Negative 08/31/16 19:17 Anaerobic Blood Culture - Preliminary Resulted Blood Peripheral NO GROWTH IN 3 DAYS Imaging Last Impressions Liver Ultrasound 09/02/16 0000 Signed Impressions: Service Date/Time: Friday, September 02, 2016 17:10 - CONCLUSION: 1. No solid lesions in the liver. 2. Solitary cyst in the right lobe of the liver, small pleural effusion, and minimal amount of fluid in House's pouch. Da Sesay MD Brain MRI 09/01/16 0000 Signed Impressions: Service Date/Time: Thursday, September 01, 2016 09:17 - CONCLUSION: 1. No acute intracranial abnormality seen. 2. There is some atrophy. 3. There is a demyelination in the periventricular white matter. This is nonspecific. Demyelination is commonly secondary to small vessel ischemic change. 4. Increased signal within the left mastoid related to fluid in the mastoid air cells. Tino Reece MD Hip and Pelvis X-Ray 08/31/161853 Signed Impressions: Service Date/Time: Wednesday, August 31, 2016 19:16 - CONCLUSION: Mild osteoarthritic left hip. Slight contour abnormality of the left femoral neck could be a ridge of osteophytes versus nondisplaced fracture. CT of the left hip without contrast may be warranted. Navarro Randolph MD Head CT 08/31/161853 Signed Impressions: Service Date/Time: Wednesday, August 31, 2016 19:26 - CONCLUSION: 1. Low attenuation in the left brain stem, left cerebellum and medial left temporal lobe. Acute infarction cannot be excluded. 2. Cerebral atrophy and chronic ischemic small vessel vasculopathy. Navarro Randolph MD Chest X-Ray 08/31/161853 Signed Impressions: Service Date/Time: Wednesday, August 31, 2016 19:20 - CONCLUSION: 1. Moderate enlargement of the cardiac silhouette likely cardiomyopathy. 2. Retrocardiac density likely hiatal hernia. Navarro Randolph MD Cervical Spine CT 08/31/16 1854 Signed Impressions: Service Date/Time: Wednesday, August 31, 2016 19:28 - CONCLUSION: 1. Scoliosis and multilevel degenerative changes. 2. Minimal anterolisthesis C3 on C4 and C4 on C5. Navarro Randolph MD Lower Extremity CT 08/31/16 0000 Signed Impressions: Service Date/Time: Wednesday, August 31, 2016 19:35 - CONCLUSION: Mild degenerative changes of each hip. No fracture along the left hip. Navarro Randolph MD Physical Exam HEENT: Bruising on the left orbit. Throat is clear. NECK: Neck is supple. CHEST: CTA CARDIAC: Irregular ABDOMEN: +BS, soft, nondistended, nontender EXTREMITIES: No clubbing, cyanosis, or edema. SKIN: Normal; no rash; no jaundice. DIGITAL SERVICE ENGINEER: No focal deficits; alert and oriented times three. (Rosa Ng) Assessment and Plan Plan ASSESSMENT: - Melena. Nurse reports that she received in report that she had a melanotic stool overnight on 09/01 and she had one streak of BRBPR last night noted with a brown BM on 09/02. She has not had any further episodes. HH stable at 11.3/25.1. Protonix. Monitor HH. Cardiology has evaluated today and not recommending anticoagulation due to fall risk. She has not had any further bleeding. Did discuss with patient further evaluation with EGD +/- Colonoscopy, as she did have melena/brbpr while in ER. She does not wish to proceed with any endoscopic procedures. - Elevated LFTs, likely R/T rhabdo. Liver Ultrasound (09/02/16)----> 1. No solid lesions in the liver. 2. Solitary cyst in the right lobe of the liver, small pleural effusion, and minimal amount of fluid in House's pouch. Hepatitis panel pending. LFTs are improving. T. Bili 0.4, AST 52, ALT 46, Alk phosph 82. - Leukocytosis. resolved - Rhabdomyolysis, S/P Fall. IMPROVING. CPK, 163 today. - Elevated Troponin. Cardiology following, does not recommend anticoagulation secondary to the risk of falling. - Atrial fibrillation. Telemetry with AF rate controlled. Cardiology feels that at this point pt is not a good candidate for anticoagulation. - SOFÍA with electrolyte abnormalities. Creat 1.46. - Abn. imaging of the head on CT, concerning for acute infarct. CT Scan of the head (08/31/16) which revealed 1. Low attenuation in the left brain stem, left cerebellum and medial left temporal lobe. Acute infarction cannot be excluded. 2. Cerebral atrophy and chronic ischemic small vessel vasculopathy. MRI (09/01) ---> No acute intracranial abnormality seen. There is some atrophy. There is a demyelination in the periventricular white matter. This is nonspecific. Demyelination is commonly secondary to small vessel ischemic change. Increased signal within the left mastoid related to fluid in the mastoid air cells. - HTN, Hyperlipidemia per CCM. PLAN: - JAVON - Cont. Protonix - Monitor HH - Monitor LFTs - Supportive care - Pt refusing endoscopic procedures - Pt seen and examined by Dr. Judge and myself and this note is written on his behalf (Rosa Ng) Physician Comments Patient seen and examined Agree with above Continue with current supportive care Monitor labs (Oscar Judge MD) Rosa Ng Sep 04, 2016 09:41 Oscar Judge MD Sep 04, 2016 23:14
[2016-09-04] MEDS: HEPARIN SODIUM - SQ 10,000 UNITS/ML VIAL SQ SCH (10:15)
[2016-09-04] MEDS: PSYLLIUM FIBER SF/GF 6 GM POWD PKT PO SCH (10:28)
[2016-09-04 12:00] VITALS: BP 140/65; PULSE 63; RESP 16; TEMP 97.5; O2SAT 97
[2016-09-04] MEDS ORDERED: TEMA30CA PO (15:41)
[2016-09-04 16:00] VITALS: BP 141/60; PULSE 63; RESP 16; TEMP 95.3; O2SAT 97
[2016-09-04] MEDS ORDERED: BIO-POW TOPICAL (16:35)
--- NOTE | 2016-11-07 14:35 | HHI.DS ---
Discharge Summary Admission Date Aug 31, 2016 at 20:36 Discharge Date: Sep 04, 2016 Admitting Diagnosis rhabdomyolysis, acute kidney injury, elevated troponin, possible CVA (1) Rhabdomyolysis Diagnosis: Principal (2) Acute renal failure superimposed on stage 3 chronic kidney disease Diagnosis: Principal (3) HTN (hypertension) Diagnosis: Secondary (4) Paroxysmal atrial fibrillation Diagnosis: Secondary Consultants Dr. Houston Rosen, Cardiology Dr. Sabrina Victor, Gastroenterology Brief History 85-year-old female presents the emergency department via EMS status post fall from her toilet at home 2 days prior to this visit. Patient was unable to get up and spent the last 2 days on the floor. Her grandson found her this afternoon and called the ambulance. Patient lost balance and fell, and then was unable to get up. She does complain of some left hip discomfort, however her CT was negative for any fractures. The patient's Main complaint is of extreme thirst. Patient denies thoracic pain or shortness of breath. Patient denies abdominal pain. She is alert and oriented 3. She is allergic to aspirin. 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 PE at Discharge GENERAL: This is a well-nourished, well-developed patient, in no apparent distress. CARDIOVASCULAR: Regular rate and rhythm without murmurs, gallops, or rubs. RESPIRATORY: Clear to auscultation. Breath sounds equal bilaterally. No wheezes , rales, or rhonchi. GASTROINTESTINAL: Abdomen soft, non-tender, nondistended. Normal active bowel sounds MUSCULOSKELETAL: Extremities without clubbing, cyanosis, or edema. NEURO: Alert & Oriented x4 to person, place, time, situation. Moves all ext x4 Hospital Course (1) Rhabdomyolysis Status: Acute Plan: - Pt presented after having fall and lying on floor. - rhabdomyolysis and some AMS. - acute on ckd 3 - Pt treated with IVFs - labs improved - PT - Pt discharged to SNF 09/04/16 (2) Acute renal failure superimposed on stage 3 chronic kidney disease Status: Acute Plan: - improved to probable baseline (3) HTN (hypertension) Status: Chronic Plan: - stable off HCTZ (4) Paroxysmal atrial fibrillation Status: Acute Plan: - identified on telemetry - poor anticoagulation candidate - appreciate input from Cardiology - Echocardiogram - EF 40-45% - grade 2 diastolic dysfunction - Pt is NOT having sustained tachycardia - will NOT start rate controlling agent at this time - observe on telemetry Pt Condition on Discharge: Stable Discharge Disposition: Discharge to SNF Discharge Instructions DIET: Follow Instructions for: Heart Healthy Diet Activities you can perform: Regular-No Restrictions Follow up Referrals: PCP Follow-up - [address] Og New Medications: Nystatin Powder (Bio-Statin Powder) 1 Pow Pow 1 APPLIC TOPICAL TID Apply under breats and in groin area feli Days 10 BOTTLE Continued Medications: Estrogens, Conjugated (Premarin) 0.625 Mg Tab 0.625 MG PO DAILY Estrogen Supplements #30 Ref 0 TAB Ferrous Sulfate (Ferrous Sulfate) 325 Mg Tab 325 MG PO HS Nutritional Supplement #30 Ref 0 TAB Mirtazapine (Mirtazapine) 30 Mg Tab 30 MG PO HS Depression Control #30 Ref 0 TAB Multiple Vitamins W/ Minerals (Ocuvite) 1 Tab 1 TAB PO DAILY Nutritional Supplement Ref 0 TAB [place]-3 Fatty Acids (Fish Oil 1000 mg) 1 Cap Cap 1000 MG PO DAILY Oxybutynin (Ditropan) 5 Mg Tab 5 MG PO BID Urinary Symptom Managemen #60 Ref 0 TAB Psyllium (Metamucil) 520 Mg Cap 520 MG PO DAILY Temazepam (Temazepam) 30 Mg Cap 30 MG PO HS PRN INSOMNIA #30 Ref 0 CAP (This prescription has been renewed) Discontinued Medications: Allopurinol (Allopurinol) 100 Mg Tab 100 MG PO DAILY Gout #30 Ref 0 TAB Ablkfdzjr-Ehobdiedfgz-Lmnrzrm (Osteo Bi-Flex One A Day) 1 Tab 1 TAB PO DAILY TAB Cephalexin (Cephalexin) 250 Mg Tab 250 MG PO BID Ref 0 TAB Potassium Chloride ER (Klor-Con 8) 8 Meq Tab 8 MEQ PO DAILY Electrolyte Replacement #30 Ref 0 TAB Triamterene-Hydrochlorothiazide (Triamterene-Hydrochlorothiazide) 75-50 Mg Tab 1 TAB PO BID #30 Ref 0 TAB Walter Marquez DO Nov 07, 2016 14:35
== END 2016-09-04 19:01 | DRG 565 ==
LOC: NEPC 18:21 → NEDA 20:36 → NEDH 09-01 01:13 → HIMW 09-01 13:00 → N07B 09-02 15:30
PROVIDERS: ADMIT Internal Medicine Critical Care Medicine; ATTEND Internal Medicine Critical Care Medicine
DX: T79.6XXA Traumatic ischemia of muscle, initial encounter (principal); I42.0 Dilated cardiomyopathy; N17.9 Acute kidney failure, unspecified; I48.0 Paroxysmal atrial fibrillation; E83.52 Hypercalcemia; G31.9 Degenerative disease of nervous system, unspecified; K92.1 Melena; I12.9 Hypertensive chronic kidney disease with stage 1 through stage 4 chronic kidney disease, or unspecified chronic kidney disease; N18.3 Chronic kidney disease, stage 3 (moderate); E86.0 Dehydration; W18.11XA Fall from or off toilet without subsequent striking against object, initial encounter; Y92.002 Bathroom of unspecified non-institutional (private) residence as the place of occurrence of the external cause; R74.8 Abnormal levels of other serum enzymes; D50.9 Iron deficiency anemia, unspecified; M10.9 Gout, unspecified; E78.5 Hyperlipidemia, unspecified; Z85.828 Personal history of other malignant neoplasm of skin; Z96.612 Presence of left artificial shoulder joint; Z96.611 Presence of right artificial shoulder joint; Z88.6 Allergy status to analgesic agent
CPT/HCPCS: 70450; 70551; 71010; 72125; 73502; 73700; 76705; 80048; 80053; 80074; 81001; 82550; 82552; 83735; 84100; 84132; 84484; 85014; 85018; 85025; 85610; 85730; 86403; 87040; 87077; 87186; 87205; 87641; 93005; 93306; C9113; J1644; J2405; J2543; J7030; J7042